=== PATIENT | female | born 1995 | race Hispanic/Latino ===

== ENCOUNTER 2023-03-03 03:40 | Emergency (ER) | payer SELFPAY ==
--- OUTSIDE RECORDS SUMMARY | 2023-03-03 03:44 | XMS REPORT | Continuity of Care Document ---
:1995 Author Organization [facility] t Address [address] [facility] [address] [place] [address] Care Team Providers Name Role Phone CINDY SCHULZ Primary Care Physician Unavailable Cindy Schulz Attending Clinician Unavailable ANTONY DOWD Attending Clinician Unavailable Antony Jimenez Attending Clinician MAYRA MAGANA Attending Clinician Unavailable Mayra Magana MD Attending Clinician Diallo Worthington MD Attending Clinician DIALLO WORTHINGTON Attending Clinician Unavailable Payton Ravi Attending Clinician David Rendon Attending Clinician DAVID TAVERA Attending Clinician Unavailable Doctor Unassigned, [place] Attending Clinician Unavailable Jessica Palomino Attending Clinician [facility] Attending Clinician Unavailable Kiesha Sims Attending Clinician ANTONY DOWD Admitting Clinician Unavailable MAYRA MAGANA Admitting Clinician Unavailable Payers Payer Name Policy Type Policy Number Effective Date Expiration Date S bell Blue Cross 6 [id number] 2019 Common Spiri t Blue Shield of 00:00:00 - [facility] [id number] 2017 - OUT OF STATE 00:00:00 Problems Condition Condition Condition Status Onset Resolution Last Treating Co mments Source Name Details Category Date Date Treatment Clinician Date No known No known Disease Unive rs active active ity of problems problems [facility] [id number] PEPITO Problem Active Common (generaliz Spirit ed anxiety - [facility]I disorder) [facility] [id number] Mixed Problem Active Common hyperlipid Spirit emia - [facility] [id number] Current Problem Active Common moderate Spirit episode of - [facility] major [facility] Center prior episode Allergies, Adverse Reactions, Alerts Allergy Allergy Status Severity Reaction(s) Onset Inactive Treating Comm ents Source Name Type Date Date Clinician No Known DA Active U 2019-0 [facility] 00 [facility] No Known DA Active U 2019-0 [facility] Allergie 4-23 [facility] 00 [facility] NO KNOWN Drug Active Univers ALLERGIE Class ity of S [facility] Social History Social Habit Start Date Stop Date Quantity Comments Source History of Common Spirit - Tobacco Use [facility] Sex Assigned At Common Sp charan - [facility] Exposure to 2022-02-23 2022-03-05 Yes University SARS-CoV-2 00:00:00 15:58:00 [facility] (event) [place] Tobacco use and 2020-01-24 2020-01-24 Smokeless tobacco Un iversity of exposure 00:00:00 00:00:00 non-user [facility] Smoking Status Start Date Stop Date Source Never Smoker Common [facility] - [facility] Medications Ordered Filled Start Stop Current Ordering Indication Dosage Frequency Signature Comments Components Source Medication Medication Date Date Medication? Clinician (SIG) Name Name iopamidol No [id number] 60mL 60 mL, Univers (ISOVUE 03-05 Intravenou ity o f 370-500 mL) 22:20: 22:30 s, ONCE, 1 [place] injection 00 :00 dose, On Medica l 60 mL 03/05/22 Branch at 1730, Routine NaCl 0.9% No 1000mL at 999 Uni vers (NS) bolus 03-05 mL/hr, ity of infusion 21:30: 22:30 1,000 mL, Arvin as 1,000 mL 00 :00 IV Medical Infusion, Branch ONCE, 1 dose, On 03/05/22 at 1630, REGINA ondansetron No 4mg 4 mg, Slow Univers (ZOFRAN 03-05 IV Push, ity of (PF)) 20:45: 20:53 ONCE, 1 [place] injection 4 00 :00 dose, On Medi kehinde mg 03/05/22 Branch at 1545, REGINA ketorolac No 30mg 30 mg, Unive rs (TORADOL) 03-05 Slow IV ity of injection 20:45: 20:53 Push, [place] 30 mg 00 :00 ONCE, 1 Medical dose, On Branch 03/05/22 at 1545, REGINA ondansetron Yes [id number] 4mg Take 1 Univers 4 mg 03-05 tablet by ity of disintegrat 00:00: mouth [place] ing tablet 00 every 8 Medica l (eight) Branch hours as needed for Nausea and Vomiting (N/V). iopamidol 2021- No [id number] 100mL 100 mL, Univers (ISOVUE 10-21- Intravenou ity o f 370-500 mL) 18:45: 19:00 s, ONCE, 1 [place] injection 00 :00 dose, On Medica l 100 mL Ifeoma Branch 10/21/21 at 1400, Routine metoclopram No 10mg 10 mg, Uni vers angela HCl 10-21-24 Slow IV ity of (REGLAN) 18:00: 17:45 Push, [place] injection 00 :00 ONCE, 1 Medical 10 mg dose, On Branch Ifeoma 10/21/21 at 1300, REGINA FENTanyl PF 2021-2021- No 75ug 75 mcg, Un halina (SUBLIMAZE 3-21 10-24 Slow IV ity o f (PF)) 18:00: 17:46 Push, [place] injection 00 :00 ONCE, 1 Medical 75 mcg dose, On Branch Ifeoma 10/21/21 at 1300, STAT ondansetron 2021-0 Yes [id number] 4mg Take 1 Univers 4 mg 3-24 tablet by ity of disintegrat 00:00: mouth [place] ing tablet 00 every 4 Medica l (four) Branch hours as needed for Nausea and Vomiting (N/V). docusate 2021-0 Yes [id number] 250mg Take 1 Un halina sodium 250 3-24 capsule by ity of mg capsule 00:00: mouth once [place] 00 daily as Medical needed for Branch Constipati on. ondansetron 2021-0 Yes [id number] 4mg Take 1 Univers 4 mg 3-24 tablet by ity of disintegrat 00:00: mouth [place] ing tablet 00 every 4 Medica l (four) Branch hours as needed for Nausea and Vomiting (N/V). dicyclomine 2021-0 Yes [id number] 20mg Take 1 Univers 20 mg 3-24 tablet by ity of tablet 00:00: mouth 4 [place] 00 (four) Medical times Branch daily. ondansetron 2021-0 Yes [id number] 4mg Take 1 Univers 4 mg 3-24 tablet by ity of disintegrat 00:00: mouth [place] ing tablet 00 every 4 Medica l (four) Branch hours as needed for Nausea and Vomiting (N/V). docusate 2021-0 Yes [id number] 250mg Take 1 Un halina sodium 250 3-24 capsule by ity of mg capsule 00:00: mouth once [place] 00 daily as Medical needed for Branch Constipati on. ondansetron 2-0 Yes [id number] 4mg Take 1 Univers 4 mg 3-24 tablet by ity of disintegrat 00:00: mouth [place] ing tablet 00 every 4 Medica l (four) Branch hours as needed for Nausea and Vomiting (N/V). dicyclomine 2022-0 Yes [id number] 20mg Take 1 Univers 20 mg 3-24 tablet by ity of tablet 00:00: mouth 4 [place] 00 (four) Medical times Branch daily. magnesium 2021- No [id number] 300mL Take 300 Univers citrate 3-24 03-25 mL by ity of solution 00:00: 04:59 mouth [place] 00 :00 now for 1 Medical dose. Branch buPROPion 2020-07 Yes bupropion Uni vers XL 150 mg 1-07 HCl XL 150 ity of 24 hr 14:43: mg 24 hr [place] tablet 05 tablet, Medical extended Branch release TAKE 1 TABLET BY MOUTH EVERY DAY IN THE MORNING buPROPion 2020-07 Yes bupropion Uni vers XL 150 mg 1-07 HCl XL 150 ity of 24 hr 14:43: mg 24 hr [place] tablet 05 tablet, Medical extended Branch release TAKE 1 TABLET BY MOUTH EVERY DAY IN THE MORNING buPROPion 2020-07 Yes bupropion Uni vers XL 150 mg 1-07 HCl XL 150 ity of 24 hr 14:43: mg 24 hr [place] tablet 05 tablet, Medical extended Branch release TAKE 1 TABLET BY MOUTH EVERY DAY IN THE MORNING buPROPion 2020-07 Yes bupropion Uni vers XL 150 mg 1-07 HCl XL 150 ity of 24 hr 14:43: mg 24 hr [place] tablet 05 tablet, Medical extended Branch release TAKE 1 TABLET BY MOUTH EVERY DAY IN THE MORNING buPROPion buPROPion No buPROPion HCl ER (XL) HCl ER (XL) HCl ER 150 MG 150 MG (XL) 150 MG buPROPion buPROPion No buPROPion HCl ER (XL) HCl ER (XL) HCl ER 150 MG 150 MG (XL) 150 MG buPROPion buPROPion No buPROPion HCl ER (XL) HCl ER (XL) HCl ER 150 MG 150 MG (XL) 150 MG buPROPion buPROPion No buPROPion HCl ER (XL) HCl ER (XL) HCl ER 150 MG 150 MG (XL) 150 MG buPROPion buPROPion No buPROPion HCl ER (XL) HCl ER (XL) HCl ER 150 MG 150 MG (XL) 150 MG buPROPion buPROPion No buPROPion HCl ER (XL) HCl ER (XL) HCl ER 150 MG 150 MG (XL) 150 MG buPROPion buPROPion No buPROPion HCl ER (XL) HCl ER (XL) HCl ER 150 MG 150 MG (XL) 150 MG buPROPion buPROPion No buPROPion HCl ER (XL) HCl ER (XL) HCl ER 150 MG 150 MG (XL) 150 MG buPROPion buPROPion No buPROPion HCl ER (XL) HCl ER (XL) HCl ER 150 MG 150 MG (XL) 150 MG buPROPion buPROPion No buPROPion HCl ER (XL) HCl ER (XL) HCl ER 150 MG 150 MG (XL) 150 MG buPROPion buPROPion No buPROPion HCl ER (XL) HCl ER (XL) HCl ER 150 MG 150 MG (XL) 150 MG buPROPion buPROPion No buPROPion HCl ER (XL) HCl ER (XL) HCl ER 150 MG 150 MG (XL) 150 MG buPROPion buPROPion No buPROPion HCl ER (XL) HCl ER (XL) HCl ER 150 MG 150 MG (XL) 150 MG buPROPion buPROPion No buPROPion HCl ER (XL) HCl ER (XL) HCl ER 150 MG 150 MG (XL) 150 MG buPROPion buPROPion No buPROPion HCl ER (XL) HCl ER (XL) HCl ER 150 MG 150 MG (XL) 150 MG buPROPion buPROPion No buPROPion HCl ER (XL) HCl ER (XL) HCl ER 150 MG 150 MG (XL) 150 MG buPROPion buPROPion No buPROPion HCl ER (XL) HCl ER (XL) HCl ER 150 MG 150 MG (XL) 150 MG buPROPion buPROPion No buPROPion HCl ER (XL) HCl ER (XL) HCl ER 150 MG 150 MG (XL) 150 MG Immunizations Ordered Filled Immunization Date Status Comments [facility] e Immunization Name Name Adacel (Tdap) Adacel (Tdap) 2020-09-01 Completed Common S pirit - 16:18:00 [facility] Adacel (Tdap) Adacel (Tdap) 2020-09-01 Completed Common S pirit - 16:18:00 [facility] Adacel (Tdap) Adacel (Tdap) 2020-09-01 Completed Common S pirit - 16:18:00 [facility] Adacel (Tdap) Adacel (Tdap) 2020-09-01 Completed Common S pirit - 16:18:00 [facility] Adacel (Tdap) Adacel (Tdap) 2020-09-01 Completed Common S pirit - 16:18:00 [facility] Adacel (Tdap) Adacel (Tdap) 2020-09-01 Completed Common S pirit - 16:18:00 [facility] Adacel (Tdap) Adacel (Tdap) 2020-09-01 Completed Common S pirit - 16:18:00 [facility] Adacel (Tdap) Adacel (Tdap) 2020-09-01 Completed Common S pirit - 16:18:00 [facility] Adacel (Tdap) Adacel (Tdap) 2020-09-01 Completed Common S pirit - 16:18:00 [facility] Adacel (Tdap) Adacel (Tdap) 2020-09-01 Completed Common S pirit - 16:18:00 [facility] Adacel (Tdap) Adacel (Tdap) 2020-09-01 Completed Common S pirit - 16:18:00 [facility] Influenza Virus 2010-03-31 Completed Universit y of Vaccine - Whole 00:00:00 [facility] Influenza Virus 2010-03-31 Completed Universit y of Vaccine - Whole 00:00:00 [facility] Influenza Virus 2010-03-31 Completed Universit y of Vaccine - Whole 00:00:00 [facility] Influenza Virus 2010-03-31 Completed Universit y of Vaccine - Whole 00:00:00 [facility] Influenza Virus 2010-03-31 Completed Universit y of Vaccine - Whole 00:00:00 [facility] Influenza Virus 2010-03-31 Completed Universit y of Vaccine - Whole 00:00:00 [facility] Vital Signs Vital Name Observation Time Observation Value Comments Source Systolic blood 2022-03-05 23:00:00 122 mm[Hg] Univer sity of pressure [facility] Diastolic blood 2022-03-05 23:00:00 78 mm[Hg] Unive rsity of pressure [facility] Heart rate 2022-03-05 23:00:00 88 /min Universi ty of [facility] Respiratory rate 2022-03-05 23:00:00 15 /min Univ ersity of [place] [facility] Oxygen saturation in 2022-03-05 23:00:00 99 /min University of Arterial blood by [place] [employer] kehinde Pulse oximetry Branch Body temperature 2022-03-05 20:29:00 37.39 Marilee Univ [facility] [place] [facility] Body height 2022-03-05 20:29:00 154.9 cm [facility] [place] [facility] Body weight 2022-03-05 20:29:00 70.761 kg [facility] [place] [facility] BMI 2022-03-05 20:29:00 29.48 kg/m2 [facility] [place] [facility] Systolic blood 2021-10-21 20:22:00 123 mm[Hg] Univer sity of pressure [place] [facility] Diastolic blood 2021-10-21 20:22:00 90 mm[Hg] Unive rsity of pressure [place] [facility] Heart rate 2021-10-21 20:22:00 76 /min [facility] [place] [facility] Body temperature 2021-10-21 20:22:00 37.5 Marilee Univ [facility] [place] [facility] Respiratory rate 2021-10-21 20:22:00 18 /min Univ [facility] [place] [facility] Oxygen saturation in 2021-10-21 20:22:00 100 /min University of Arterial blood by [place] [employer] kehinde Pulse oximetry Branch Body height 2021-10-21 16:18:00 154.9 cm [facility] [place] [facility] Body weight 2021-10-21 16:18:00 72.576 kg [facility] [place] [facility] BMI 2021-10-21 16:18:00 30.23 kg/m2 [facility] [place] [facility] Body weight 2021-10-21 01:20:00 74.98 kg [facility] [place] [facility] BMI 2021-10-21 01:20:00 31.23 kg/m2 [facility] [place] [facility] Systolic blood 2021-10-21 01:19:00 129 mm[Hg] Univer sity of pressure [place] [facility] Diastolic blood 2021-10-21 01:19:00 87 mm[Hg] Unive rsity of pressure [place] [facility] Heart rate 2021-10-21 01:19:00 91 /min [facility] [place] [facility] Body temperature 2021-10-21 01:19:00 36.72 Marilee Univ [facility] [place] [facility] Respiratory rate 2021-10-21 01:19:00 16 /min [facility] Oxygen saturation in 2021-10-21 01:19:00 99 /min University of Arterial blood by [facility] Pulse oximetry Branch Systolic blood 2021-10-20 23:22:00 129 mm[Hg] Univer sity of pressure [facility] Diastolic blood 2021-10-20 23:22:00 85 mm[Hg] Unive rsity of pressure [facility] Body temperature 2021-10-20 23:20:00 36.72 Marilee [facility] Respiratory rate 2021-10-20 23:20:00 18 /min General acute hospital Body height 2021-10-20 23:20:00 154.9 cm [facility] Body weight 2021-10-20 23:20:00 74.934 kg [facility] BMI 2021-10-20 23:20:00 31.21 kg/m2 [facility] Oxygen saturation in 2021-10-20 23:20:00 100 /min University of Arterial blood by [facility] Pulse oximetry Branch Heart rate 2021-10-20 23:20:00 89 /min [facility] height 2021-07-07 16:30:00 61 [in_i] [facility] weight 2021-07-07 16:30:00 163 [lb_av] [facility] temperature 2021-07-07 16:30:00 98 [degF] [facility] bmi 2021-07-07 16:30:00 30.8 kg/m2 [facility] Procedures Procedure Date / Time Performing Clinician Source Performed CT ABDOMEN PELVIS W 2022-03-05 22:23:55 Antony Dowd [facility] POCT TEST 2022-03-05 20:56:00 Antony Dowd [facility] LIPASE 2022-03-05 20:46:00 Antony Dowd [facility] COMP. METABOLIC PANEL 2022-03-05 20:46:00 Antony Dowd [facility] ([id number]) Medical Branch CBC WITH DIFF 2022-03-05 20:46:00 Antony Dowd [facility] URINALYSIS 2022-03-05 20:46:00 Antony Dowd [facility] CONSENT/REFUSAL FOR 2022-03-05 20:26:39 Doctor Unassigned, No [facility] [place] [facility] Name Medical [place] CT ABDOMEN PELVIS W 2021-10-21 18:47:33 Mayra Magana [facility] CONTRAST Medical Branch LIPASE 2021-10-21 17:43:00 [place] [facility]ra [facility] COMP. METABOLIC PANEL 2021-10-21 17:43:00 Mayra Magana [facility] ([id number]) Medical [place] CBC WITH DIFF 2021-10-21 17:43:00 Chino [facility] PROTHROMBIN TIME / INR 2021-10-21 17:43:00 Mayra Magana [facility] ACTIVATED PARTIAL 2021-10-21 17:43:00 Chino [facility] THRMPLAS SG [facility] URINALYSIS 2021-10-21 17:43:00 [place] Mayra [facility] POCT TEST 2021-10-21 17:40:00 [place] Mayra [facility] CONSENT/REFUSAL FOR 2021-10-21 16:14:17 Doctor Unassigned, No [facility] [place] [facility] CONSENT/REFUSAL FOR 2021-10-21 01:18:47 Doctor Unassigned, No [facility] [place] [facility] POCT TEST 2021-10-20 23:02:00 Diallo Worthington [facility] POCT URINALYSIS 2021-10-20 23:01:00 Ander D[facility]lo [facility] Encounters Start End Encounter Admission Attending Care Care Encounter Source Date/Time Date/Time Type Type Clinicians Facility Department ID 2022-04-21 [facility] [id number] Common 10:35:01 [facility] 2022-03-10 Outpatient Schulz, STLMLC STLMLC [id number] Common 16:57:00 Cindy [address] [facility] 2021-11-05 Outpatient Schulz, STLMLC STLMLC [id number] Common 09:17:03 Cindy [facility] 2021-09-27 Outpatient Schulz, STLMLC STLMLC [id number] Common 09:06:03 Cindy [facility] 2021-08-25 Outpatient Schulz, STLMLC STLMLC [id number] Common 14:19:10 Cindy [address] [facility] 2021-08-25 Outpatient Schulz, STLMLC STLMLC [id number] Common 12:32:42 Cindy [id number] [facility] 2021-08-25 Outpatient Schulz, STLMLC STLMLC [id number] Common 12:31:11 Cindy [address] [facility] 2021-08-25 Outpatient Schulz, STLMLC STLMLC [id number] Common 12:27:59 Cindy [address] [facility] 2022-03-10 2022-03-10 (WEB) STLMLC STLMLC [id number] Co mmon 00:00:00 00:00:00 [facility] 2022-03-05 2022-03-05 Emergency X ANDRESSA ANTONY [facility] ERT [id number] Univers 15:30:00 19:25:00 ity of [facility] 2022-03-05 2022-03-05 Emergency Antony Dowd [facility] [id number] Univers 15:30:00 19:25:00 T LEANDER [id number] i brittney [facility] [id number] [facility] [id number] [place] [address] Branch 2022-03-03 2022-03-03 ([place]) Nurse STMELIZALC STLC [id number] Common 00:00:00 00:00:00 Visit [facility] 2022-03-02 2022-03-02 (TEL) STLMLC STLMLC [id number] Co mmon 00:00:00 00:00:00 Spirit - [facility] 2021-10-21 2021-10-21 Emergency X CHINO [facility] ERT [id number] Univers 11:22:00 15:30:[address] [facility] 2021-10-21 2021-10-21 [facility] [id number] Univers 11:22:00 15:30:00 [facility] [id number] i ty of [id number] [id number] [facility] 084 Branch 2021-10-20 2021-10-20 Emergency X [facility] ERT [id number] Univers 20:23:00 [facility] 2021-10-20 2021-10-20 Emergency TRAUMA [id number] Univers 20:23:00 23:06:00 BOCA RATON [id number] [id number] [id number] [facility] 014 Branch 2021-10-20 2021-10-20 [facility]gent [facility] [id number] Univers 19:00:00 19:00:00 Care [facility] [id number] it [facility] [id number] Arvin as SUZAN?BLEA [phone] [address] MEDICAL OFFICE BUILDING 2021-10-20 2021-10-20 Outpatient R ANDER [facility] [id number] Univers 19:00:00 18:20:11 [facility] 2021-09-26 2021-09-26 (WEB) STLC STLC [id number] Co mmon 00:00:00 00:00:00 [facility] 2021-08-10 2021-08-10 OFFICE STLC STLC [id number] Co mmon 00:00:00 00:00:00 VISIT Spirit ESTAB PT - CHI LEVEL 1 [facility] 2021-08-10 2021-08-10 (WEB) STLMLC STLMLC [id number] Co mmon 00:00:00 00:00:00 Spirit - [facility] 2021-07-07 2021-07-07 OFFICE STLMLC STLMLC [id number] Co mmon 00:00:00 00:00:00 VISIT EST Spir it PT LEVEL 3 - [facility] 2021-06-30 2021-06-30 (WEB) STLMLC STLMLC [id number] Co mmon 00:00:00 00:00:00 [facility] 2021-06-29 2021-06-29 (TEL) STLMLC STLMLC [id number] Co mmon 00:00:00 00:00:00 [facility] 2021-06-29 2021-06-29 (WEB) STLMLC STLMLC [id number] Co mmon 00:00:00 00:00:00 [facility] 2021-06-29 2021-06-29 OFFICE STLMLC STLMLC [id number] Co mmon 00:00:00 00:00:00 VISIT Spirit ESTAB PT - CHI LEVEL 1 [facility] 2021-06-06 2021-06-06 [facility] [id number] [facility] 14:58:12 23:59:00 Encounter [employer] [id number] ity of [place] [id number] Arvin as SUZAN?BLEA [id number] [address] [facility] 2021-06-06 2021-06-06 [facility] [id number] [facility] 14:58:11 23:59:00 Encounter [employer] [id number] ity of [place] [id number] Arvin as SUZAN?BLEA [id number] [address] [facility]ICE [facility] 2021-06-06 2021-06-06 [place] [id number] [facility] 14:37:53 15:49:33 Care David Tavera [facility] [id number] ity of [place] [id number] Arvin as SUZAN?BLEA [id number] [place] elizabeth BEGUMEY [address] [place] MEDICAL OFFICE BUILDING 2021-06-06 2021-06-06 Outpatient R YOSHI [facility] [id number] Univers 14:20:00 15:49:33 DAVID ity o f [facility] 2021-06-06 2021-06-06 Orders Doctor ANGI [id number] Univers 00:00:00 00:00:00 Only Unassigned, MIGEL [id number] [facility] [id number] Arvin as [id number] [address] 2021-02-16 2021-02-16 Outpatient STLMLC STLMLC [id number] Common 00:00:00 00:00:00 [facility] 2020-12-10 2020-12-10 Outpatient STLMLC STLMLC [id number] Common 00:00:00 00:00:00 [facility] 2020-12-03 2020-12-03 Outpatient STLMLC STLMLC [id number] Common 00:00:00 00:00:00 [facility] 2020-09-23 2020-09-23 Outpatient STLMLC STLMLC [id number] Common 00:00:00 00:00:00 [facility] 2020-09-01 2020-09-01 Outpatient STLMLC STLMLC [id number] Common 00:00:00 00:00:00 [facility] 2020-01-25 2020-01-25 [facility] [id number] Univers 00:00:00 00:00:00 [employer] [id number] it y of [place] [id number] Avrin as Professio [phone] [place] elizabeth le [address] [place] [address] 2020-01-24 2020-01-24 Urgent Pob1, Acute Care Clinic [facility] [id number]. [id number] Univers 09:38:24 09:58:24 [id number] [id number] Arvin as Ophelia [phone] [place] [address] Branch [address] [facility] 2020-01-24 2020-01-24 Outpatient R [facility] [id number] Univers 09:40:00 09:40:[address] [facility] Results Test Description Test Time Test Comments Results Result Comments Source COMP. METABOLIC PANEL (27211) 2022-03-05 21:09:07 Test Item Value Reference Range Interpretation Comme nts NA (test code = 9824456476) 137 mmol/L 135-145 K (test code = 9050295079) 3.9 mmol/L 3.5-5 CL (test code = 0578431089) 101 mmol/L 98-108 CO2 TOTAL (test code = 8899996007) 24 mmol/L 23-31 AGAP (test code = 0246048419) 2-16 BUN (test code = 6749979223) 8 mg/dL 7-23 GLUCOSE (test code = 1611355706) 130 mg/dL 70-110 H CREATININE (test code = 0.46 mg/dL 0.5-1.04 L 2011281592) TOTAL BILI (test code = 0.4 mg/dL 0.1-1.7 9641164897) CALCIUM (test code = 1908806956) 9.5 mg/dL 8.6-10.6 T PROTEIN (test code = 0386479212) 7.9 g/dL 6.3-8.2 ALBUMIN (test code = 6859997415) 5.1 g/dL 3.5-5 H ALK PHOS (test code = 5544176594) 89 U/L 34-122 ALTv (test code = 1742-6) 20 U/L 5-35 AST(SGOT) (test code = 3524699133) 23 U/L 13-40 eGFR (test code = 4503621436) mL/min/1.73m2 DIETER (test code = DIETER) Association of Glomerular Filtration Rate (GFR) and Staging of Kidney Disease* + +-------- + ------+| GFR (mL/min/1.73 m2) ?| With Kidney Damage ?| ?Without Kidney Damage+ +-- + +| ?>90 ?| ?Stage one ?| ? Normal ?+ +------- + -------+| ?60-89 ?| ?Stage two ?| ? Decreased GFR ? + +-------- + ------+| ?30-59 ?| ?Stage three ?| ? Stage three ? + +-------- + ------+| ?15-29 ?| ?Stage four ? | ? Stage four ?+ +------- + -------+| ?<15 (or dialysis) ? ?| ?Stage five ? | ? Stage five ?+ +------- + -------+ *Each stage assumes the associated GFR level has been in effect for at least three months. ?Stages 1 to 5, with or without kidney disease, indicate chronic kidney disease. Notes: Determination of stages one and two (with eGFR >59mL/min/1.73 m2) requires estimation of kidney damage for at least three months as defined by structural or functional abnormalities of the kidney, manifested by either:Pathological abnormalities or Markers of kidney damage (including abnormalities in the composition of the blood or urine or abnormalities in imaging tests). Lab Interpretation (test code = Abnormal 97623-1) [facility] Test Item Value Reference Range Interpretation Comments LIPASE (test code = 0499090241) 70 U/L 0-220 Lab Interpretation (test code = Normal 89592-3) [facility] WITH [id number] 20:58:27 Test Item Value Reference Range Interpretation Comments WBC (test code = See_Comment H [Automated 0815-2) message] The system which generated this result transmit ritika reference range : 4.30 - 11.10 10*3/?L. The reference range was not used to interpret this result as normal/abnormal . RBC (test code = See_Comment [Automated 712-9) message] The system which generated this result transmit ritika reference range : 3.93 - 5.25 10*6/?L. The reference range was not used to interpret this result as normal/abnormal . HGB (test code = 12.4 g/dL 11.6-15 718-7) HCT (test code = 37.9 % 35.7-45.2 4544-3) MCV (test code = 81.5 fL 80.6-95.5 787-2) MCH (test code = 26.7 pg 25.9-32.8 785-6) MCHC (test code = 32.7 g/dL 31.6-35.1 786-4) RDW-SD (test code = 38.4 fL 39-49.9 L 19375-3) RDW-CV (test code = 13.1 % 12-15.5 788-0) PLT (test code = See_Comment [Automated 777-3) message] The system which generated this result transmit ritika reference range : 166 - 358 10*3/ ?L. The reference range was not u sed to interpret th is result as normal/abnormal . MPV (test code = 10.3 fL 9.5-12.9 53753-1) NRBC/100 WBC (test See_Comment [Automat ed code = 6856757762) message] The system which generated this result transmit ritika reference range : 0.0 - 10.0 /100 WBCs. The reference range was not used to interpret this result as normal/abnormal . NRBC x10^3 (test code See_Comment [Auto mated = 1347829026) message] The system which generated this result transmit ritika reference range : 10*3/?L. The reference range was not used to interpret this result as normal/abnormal . GRAN MAT (NEUT) % 90.2 % (test code = 770-8) IMM GRAN % (test code 0.30 % = 5473891193) LYMPH % (test code = 6.9 % 736-9) MONO % (test code = 2.3 % 5905-5) EOS % (test code = 0.0 % 713-8) BASO % (test code = 0.3 % 706-2) GRAN MAT x10^3(ANC) 11.66 10*3/uL 1.88-7.09 H (test code = 0431910889) IMM GRAN x10^3 (test 0.04 10*3/uL 0-0.06 code = 3774956300) LYMPH x10^3 (test code 0.89 10*3/uL 1.32-3.29 L = 731-0) MONO x10^3 (test code 0.30 10*3/uL 0.33-0.92 L = 742-7) EOS x10^3 (test code = 0.03-0.39 L 711-2) BASO x10^3 (test code 0.04 10*3/uL 0.01-0.07 = 704-7) Lab Interpretation Abnormal (test code = 38795-8) [facility] [id number] 20:56:00 Test Item Value Reference Range Interpretation Comments POCT PREG (test code = 1605) Negative On board controls acceptable with Present C Line (test code = 3574) POCT PREG TEST DATE (test 05-30-2023 code = 3576) POCT PREG LOT # (test code = 3575) [id number] Lab Interpretation (test code = Normal 75085-0) [facility]),[id number] 00:00:00 Test Item Value Reference Range Interpretation Comments SARS-CoV-2 INTERPRETATION (test NEGATIVE SEE NOTE code = 99372-3) SOURCE (test code = 94339-9) NOT SPECIFIED COMP. METABOLIC PANEL (51944)2021-10-21 19:01:40 Test Item Value Reference Range Interpretation Comments NA (test code = 139 mmol/L 135-145 0169917126) K (test code = 4.0 mmol/L 3.5-5.0 3848785606) CL (test code = 103 mmol/L 98-108 7585893990) CO2 TOTAL (test code = 26 mmol/L 23-31 5594283826) AGAP (test code = 2-16 8539645561) BUN (test code = 13 mg/dL 7-23 2010811821) GLUCOSE (test code = 83 mg/dL 70-110 0427452484) CREATININE (test code = 0.49 mg/dL 0.50-1.04 L 1652889176) TOTAL BILI (test code = 0.5 mg/dL 0.1-1.5 0474018435) CALCIUM (test code = 9.0 mg/dL 8.6-10.6 3925464562) T PROTEIN (test code = 7.8 g/dL 6.3-8.2 2279598293) ALBUMIN (test code = 5.1 g/dL 3.5-5.0 H 3087028976) ALK PHOS (test code = 63 U/L 34-122 5643707069) ALTv (test code = 14 U/L 5-35 2-6) AST(SGOT) (test code = 26 U/L 13-40 0737421553) eGFR (test code = mL/min/1.73m2 2957684684) DIETER (test code = DIETER) Association of Glomerular Filtration Rate (GFR) and Staging of Kidney Disease* + --+ --+ ------+| GFR (mL/min/1.73 m2) ?| With Kidney Damage ?| ?Without Kidney Damage+ --------+ --------+ +| ?>90 ?| ?Stage one ?| ? Normal ?+ ---+ ---+ -------+| ?60-89 ?| ?Stage two ?| ? Decreased GFR ? + --+ --+ ------+| ?30-59 ?| ?Stage three ?| ? Stage three ? + --+ --+ ------+| ?15-29 ?| ?Stage four ? | ? Stage four ?+ ---+ ---+ -------+| ?<15 (or dialysis) ? ?| ?Stage five ? | ? Stage five ?+ ---+ ---+ -------+ *Each stage assumes the associated GFR level has been in effect for at least three months. ?Stages 1 to 5, with or without kidney disease, indicate chronic kidney disease. Notes: Determination of stages one and two (with eGFR >59mL/min/1.73 m2) requires estimation of kidney damage for at least three months as defined by structural or functional abnormalities of the kidney, manifested by either:Pathological abnormalities or Markers of kidney damage (including abnormalities in the composition of the blood or urine or abnormalities in imaging tests). Lab Interpretation Abnormal (test code = 09060-5) [facility] [id number] 18:39:58 Test Item Value Reference Range Interpretation Comments APTT Patient (test See_Comment [Automat ed code = 3173-2) message] The system which generated this result transmitted reference range : 23 - 38 Seconds . The reference range was not used to interpr et this result as normal/abnormal . DIETER (test code = DIETER) The [facility] patient population mean normal value for aPTT is 30 seconds. Lab Interpretation Normal (test code = 97480-5) [facility] HospitalPROT[facility] / [id number] 18:37:41 Test Item Value Reference Range Interpretation Comments PROTIME PATIENT (test See_Comment [Auto mated message] code = 5964-2) The system wh ich generated this result transmitted ref erence range: 12.0 - 1 4.7 Seconds. The re ference range was not u sed to interpret this result as normal/abnor mal. INR (test code = 6301-6) Nor mal INR <1.1; Warfarin Therap eutic range 2.0 to 3. 0 or 2.5 to 3.5, dep ending upon the indica tions. Lab Interpretation (test Normal code = 44895-2) [facility] WITH [id number] 18:34:17 Test Item Value Reference Range Interpretation Comments WBC (test code = See_Comment [Automated 4190-2) message] The sy stem which generated this result transmitted reference range : 4.30 - 11.10 10*3/?L. The reference range was not used to interpret this result as normal/abnormal . RBC (test code = See_Comment [Automated 009-8) message] The sy stem which generated this result transmitted reference range : 3.93 - 5.25 10*6/?L. The reference range was not used to interpret this result as normal/abnormal . HGB (test code = 12.5 g/dL 11.6-15.0 718-7) HCT (test code = 39.1 % 35.7-45.2 4544-3) MCV (test code = 82.1 fL 80.6-95.5 787-2) MCH (test code = 26.3 pg 25.9-32.8 785-6) MCHC (test code = 32.0 g/dL 31.6-35.1 786-4) RDW-SD (test code = 37.0 fL 39.0-49.9 L 54010-7) RDW-CV (test code = 12.3 % 12.0-15.5 788-0) PLT (test code = See_Comment [Automated 237-3) message] The sy stem which generated this result transmitted reference range : 166 - 358 10*3/ ?L. The reference r sherie was not used to interpret this result as normal/abnormal . MPV (test code = 10.6 fL 9.5-12.9 82939-5) NRBC/100 WBC (test See_Comment [Automat ed code = 6200788950) message] The system which generated this result transmitted reference range : 0.0 - 10.0 /100 WBCs. The refer ence range was not u sed to interpret th is result as normal/abnormal . NRBC x10^3 (test code <0.01 See_Comment [Auto mated = 9036051016) message] The s ystem which generated this result transmitted reference range : 10*3/?L. The reference range was not used to interpret this result as normal/abnormal . GRAN MAT (NEUT) % 59.2 % (test code = 770-8) IMM GRAN % (test code 0.30 % = 2390914192) LYMPH % (test code = 33.6 % 736-9) MONO % (test code = 5.0 % 5905-5) EOS % (test code = 1.4 % 713-8) BASO % (test code = 0.5 % 706-2) GRAN MAT x10^3(ANC) 3.91 10*3/uL 1.88-7.09 (test code = 1502322962) IMM GRAN x10^3 (test <0.03 0.00-0.06 code = 3773033337) LYMPH x10^3 (test code 2.22 10*3/uL 1.32-3.29 = 731-0) MONO x10^3 (test code 0.33 10*3/uL 0.33-0.92 = 742-7) EOS x10^3 (test code = 0.09 10*3/uL 0.03-0.39 711-2) BASO x10^3 (test code 0.03 10*3/uL 0.01-0.07 = 704-7) Lab Interpretation Abnormal (test code = 37938-1) [facility] 18[facility]25:18 Test Item Value Reference Range Interpretation Comments LIPASE (test code = 5987785349) 110 U/L 0-220 Lab Interpretation (test code = Normal 63353-9) [facility] [id number] 17:40:00 Test Item Value Reference Range Interpretation Comments POCT PREG (test code = 1605) NEGATIVE On board controls acceptable with PRESENT C Line (test code = 3574) POCT PREG LOT # (test code = 3575) [id number] POCT PREG TEST DATE (test 2022-09-27 code = 3576) Lab Interpretation (test code = Normal 59537-3) [facility] URINALYSIS W SPECIFIC [id number] 23:02:00 Test Item Value Reference Range Interpretation Comments POCT U SP GRAV (test 1.010 mg/dl 1.005-1.025 code = 3255) POCT PH U (test code = 7 mg/dl 5-8 3254) POCT U LEUK EST (test trace Negative - code = 3263) Negative POCT U NIT (test code negative Negative - = 3262) Negative POCT U PROT (test code trace Negative - = 3259) Negative POCT U GLU (test code negative Negative - = 3256) Negative POCT U KETONE (test small + Negative - code = 3258) Negative POCT U UROBILI (test normal 0.2-1 code = 3260) POCT U BILI (test code negative Negative - = 3261) Negative POCT U BLD (test code trace Negative - = 3257) Negative POCT U COLOR (test yellow code = 3266) POCT U APPEAR (test cloudy code = 3267) DIETER (test code = DIETER) accurate development and interpretation of all internal controls Lab Interpretation Abnormal (test code = 85242-9) [facility] [id number] 23:02:00 Test Item Value Reference Range Interpretation Comments POCT PREG (test code = Negative 1605) On board controls Yes acceptable with C Line (test code = 3574) POCT PREG LOT # (test code = 3575) POCT PREG TEST DATE (test code = 3576) DIETER (test code = DIETER) accurate development and interpretation of all internal controls Lab Interpretation Normal (test code = 81015-0) [facility]),[id number] 00:00:00 Test Item Value Reference Range Interpretation Comments SARS-CoV-2 INTERPRETATION (test NEGATIVE SEE NOTE code = 79275-2) SOURCE (test code = 80391-0) NOT SPECIFIED HGB [id number] 05:19:00 Test Item Value Reference Range Interpretation Comments HEMOGLOBIN (test code = HGB) 9.8 g/dL 10.7-13.9 L HEMATOCRIT (test code = HCT) 30.5 % 32.1-42.1 L CBC W/AUTO [id number] 15:36:00 Test Item Value Reference Range Interpretation Comments WHITE BLOOD CELL (test code = WBC) 15.3 K/mm3 6.6-12.1 H RED BLOOD CELL (test code = RBC) 4.26 M/mm3 3.45-5.01 N HEMOGLOBIN (test code = HGB) 12.1 g/dL 10.7-13.9 N HEMATOCRIT (test code = HCT) 37.3 % 32.1-42.1 N MEAN CELL VOLUME (test code = MCV) 88 fL 84.1-94.8 N MEAN CELL HGB (test code = MCH) 28.4 pg 27-35 N MEAN CELL HGB CONCETRATION (test 32.4 gm/dL 32.2-34.1 N code = MCHC) RED CELL DISTRIBUTION WIDTH (test 15.2 % 12.4-16.5 N code = RDW) PLATELET COUNT (test code = PLT) 164 K/mm3 133-385 N IMMATURE PLATELET FRACTION (test 0.0 % 0.0-10.8 N code = IPF) MEAN PLATELET VOLUME (test code = 12.3 fl 9.1-12.7 N MPV) NEUTROPHIL % (test code = NT%) 87.2 % 56.5-79.4 H LYMPHOCYTE % (test code = LY%) 7.7 % 14.3-34.3 L MONOCYTE % (test code = MO%) 4.5 % 5.1-10.4 L EOSINOPHIL % (test code = EO%) 0.1 % 0.1-3.0 N BASOPHIL % (test code = BA%) 0.2 % 0.1-1.0 N NEUTROPHIL # (test code = NT#) 13.3 K/mm3 LYMPHOCYTE # (test code = LY#) 1.2 K/mm3 MONOCYTE # (test code = MO#) 0.7 K/mm3 EOSINOPHIL # (test code = EO#) 0.01 K/mm3 BASOPHIL # (test code = BA#) 0.0 K/mm3 RBC MORPHOLOGY REQUIRED (test code NORMAL NORMAL = RBCM) PLATELET MORPHOLOGY REQUIRED (test NORMAL NORMAL code = PLTMR) AG HEPATITIS B [id number] 08:28:00 Test Item Value Reference Range Interpretation Comments AG HEPATITIS B SURFACE (test code NONREACTIVE NONREACTIVE = HBSAG) IS CONSENT FORM SIGNED FOR HIV TESTING? [facility] HEPATITIS C [id number] 08:28:00 Test Item Value Reference Range Interpretation Comments AB HEPATITIS C (test code = NONREACTIVE NONREACTIVE HCVAB) SIGNAL TO CUTOFF (test code = 0.02 <0.80 N CUTOFF) IS CONSENT FORM SIGNED FOR HIV TESTING? YAB [id number] 08:28:00 Test Item Value Reference Range Interpretation Comments AB TREPONEMA (test code = TREPAB) NONREACTIVE NONREACTIVE IS CONSENT FORM SIGNED FOR HIV TESTING? YA HIV 1 08:28:00 Test Item Value Reference Range Interpretation Comments AB HIV 1 2 (test NONREACTIVE NONREACTIVE Done by [facility] code = [id number]) 4th Gen HIV Ag/Ab Combo Screen IS CONSENT FORM SIGNED FOR HIV TESTING? YAG HEPATITIS B [id number] 07:44:00 Test Item Value Reference Range Interpretation Comments AG HEPATITIS B SURFACE (test code NONREACTIVE NONREACTIVE = HBSAG) IS CONSENT FORM SIGNED FOR HIV TESTING? B HEPATITIS C [id number] 07:44:00 Test Item Value Reference Range Interpretation Comments AB HEPATITIS C (test code = HCVAB) NONREACTIVE SIGNAL TO CUTOFF (test code = CUTOFF) <0.80 IS CONSENT FORM SIGNED FOR HIV TESTING? YAB [id number] 07:44:00 Test Item Value Reference Range Interpretation Comments AB TREPONEMA (test code = TREPAB) NONREACTIVE NONREACTIVE IS CONSENT FORM SIGNED FOR HIV TESTING? YAB HIV 1 07:44:00 Test Item Value Reference Range Interpretation Comments AB HIV 1 2 (test code = OMV38OA) NONREACTIVE IS CONSENT FORM SIGNED FOR HIV TESTING? YUR PROTEIN/CREATININE [id number] 06:44:00 Test Item Value Reference Range Interpretation Comments UR PROTEIN RANDOM (test code = 36.0 mg/dL PROTU) UR CREATININE RANDOM (test 75.2 mg/dL code = CREATU) PROTEIN/CREATININE RATIO (test 470.0 mg/gcrea <200 H code = P/CRATIO) COMPREHENSIVE METABOLIC [id number] 06:15:00 Test Item Value Reference Range Interpretation Comments SODIUM (test code = NA) 137 mEq/L 135-145 N POTASSIUM (test code = K) 4.9 mEq/L 3.5-5.0 N CHLORIDE (test code = CL) 104 mEq/L 100-115 N CARBON DIOXIDE (test code = CO2) 22 mEq/L 22-31 N ANION GAP (test code = GAP) 16.20 10-20 N GLUCOSE (test code = GLU) 79 mg/dL 65-110 N BLOOD UREA NITROGEN (test code = 6 mg/dL 7-18 L BUN) GLOMERULAR FILTRATION RATE (test 198 ml/min >60 N code = GFR) CREATININE (test code = CREAT) 0.4 mg/dL 0.5-1.0 L TOTAL PROTEIN (test code = PROT) 6.3 gm/dL 6.3-8.2 N ALBUMIN (test code = ALB) 2.9 gm/dL 3.4-4.8 L CALCIUM (test code = CA) 8.8 mg/dL 8.4-10.2 N BILIRUBIN TOTAL (test code = 0.2 mg/dL 0.2-1.0 N BILT) SGOT/AST (test code = AST) 39 units/L 15-37 H SGPT/ALT (test code = ALT) 13 units/L 12-78 N ALKALINE PHOSPHATASE TOTAL (test 196 units/L 46-116 H code = ALKP) URIC [id number] 06:15:00 Test Item Value Reference Range Interpretation Comments URIC ACID (test code = URIC) 5.1 mg/dL 2.6-6.0 N CBC W/AUTO [id number] 05:55:00 Test Item Value Reference Range Interpretation Comments WHITE BLOOD CELL (test code = WBC) 9.0 K/mm3 6.6-12.1 N RED BLOOD CELL (test code = RBC) 4.19 M/mm3 3.45-5.01 N HEMOGLOBIN (test code = HGB) 11.9 g/dL 10.7-13.9 N HEMATOCRIT (test code = HCT) 36.9 % 32.1-42.1 N MEAN CELL VOLUME (test code = MCV) 88 fL 84.1-94.8 N MEAN CELL HGB (test code = MCH) 28.4 pg 27-35 N MEAN CELL HGB CONCETRATION (test 32.2 gm/dL 32.2-34.1 N code = MCHC) RED CELL DISTRIBUTION WIDTH (test 14.9 % 12.4-16.5 N code = RDW) PLATELET COUNT (test code = PLT) 184 K/mm3 133-385 N IMMATURE PLATELET FRACTION (test 0.0 % 0.0-10.8 N code = IPF) MEAN PLATELET VOLUME (test code = 12.9 fl 9.1-12.7 H MPV) NEUTROPHIL % (test code = NT%) 69.0 % 56.5-79.4 N LYMPHOCYTE % (test code = LY%) 23.4 % 14.3-34.3 N MONOCYTE % (test code = MO%) 5.5 % 5.1-10.4 N EOSINOPHIL % (test code = EO%) 1.0 % 0.1-3.0 N BASOPHIL % (test code = BA%) 0.3 % 0.1-1.0 N NEUTROPHIL # (test code = NT#) 6.2 K/mm3 LYMPHOCYTE # (test code = LY#) 2.1 K/mm3 MONOCYTE # (test code = MO#) 0.5 K/mm3 EOSINOPHIL # (test code = EO#) 0.09 K/mm3 BASOPHIL # (test code = BA#) 0.0 K/mm3 RBC MORPHOLOGY REQUIRED (test code NORMAL NORMAL = RBCM) PLATELET MORPHOLOGY REQUIRED (test NORMAL NORMAL code = PLTMR) CLOTTED;NOTIFIED DANNY FOR [id number] 16:16:00 Test Item Value Reference Range Interpretation Comments CREATININE (test code = CREAT) 0.5 mg/dL 0.5-1.0 N [id number] 16:16:00 Test Item Value Reference Range Interpretation Comments SGOT/AST (test code = AST) 21 units/L 15-37 N [id number] 16:16:00 Test Item Value Reference Range Interpretation Comments SGPT/ALT (test code = ALT) 14 units/L 12-78 N CBC W/AUTO [id number] 16:09:00 Test Item Value Reference Range Interpretation Comments WHITE BLOOD CELL (test code = WBC) 8.6 K/mm3 6.6-12.1 N RED BLOOD CELL (test code = RBC) 4.24 M/mm3 3.45-5.01 N HEMOGLOBIN (test code = HGB) 12.0 g/dL 10.7-13.9 N HEMATOCRIT (test code = HCT) 37.6 % 32.1-42.1 N MEAN CELL VOLUME (test code = MCV) 89 fL 84.1-94.8 N MEAN CELL HGB (test code = MCH) 28.3 pg 27-35 N MEAN CELL HGB CONCETRATION (test 31.9 gm/dL 32.2-34.1 L code = MCHC) RED CELL DISTRIBUTION WIDTH (test 15.2 % 12.4-16.5 N code = RDW) PLATELET COUNT (test code = PLT) 181 K/mm3 133-385 N IMMATURE PLATELET FRACTION (test 0.0 % 0.0-10.8 N code = IPF) MEAN PLATELET VOLUME (test code = 12.6 fl 9.1-12.7 N MPV) NEUTROPHIL % (test code = NT%) 69.3 % 56.5-79.4 N LYMPHOCYTE % (test code = LY%) 23.1 % 14.3-34.3 N MONOCYTE % (test code = MO%) 6.1 % 5.1-10.4 N EOSINOPHIL % (test code = EO%) 0.6 % 0.1-3.0 N BASOPHIL % (test code = BA%) 0.3 % 0.1-1.0 N NEUTROPHIL # (test code = NT#) 6.0 K/mm3 LYMPHOCYTE # (test code = LY#) 2.0 K/mm3 MONOCYTE # (test code = MO#) 0.5 K/mm3 EOSINOPHIL # (test code = EO#) 0.05 K/mm3 BASOPHIL # (test code = BA#) 0.0 K/mm3 RBC MORPHOLOGY REQUIRED (test code NORMAL NORMAL = RBCM) PLATELET MORPHOLOGY REQUIRED (test NORMAL NORMAL code = PLTMR) SARS-COV 2 AntigenSARS-COV 2 Antigen Notes Date/Time Note Provider Source 2018-11-25 08:18:00-00:00 [facility] ([facility]) OB Postpart Progr Note REPORT#:[id number] REPORT STATUS: Signed DATE:11/25/18 TIME: 08 PATIENT: ANDREA GONZALEZ UNIT #: [id number] ROOM/BED: : 95 AGE: 23 SEX: F ATTEND: Akash Salgado MD ADM AUTHOR: Lalo Salgado MD * ALL edits or amendments must be made on the [employer]/computer document * Subjective Subjective Status/Day: post (d3) Patient reports: Patient reports: Yes no complaints, Yes pain management effectiv e, Yes tolerating po well Objective Nursing Documentation Review Nursing Data: The data set between the solid lines has been im ported from nursing documentation. Any exceptions have been noted be low under Provider comments. Feeding preference: Provider comments on imported nursing data: [] General VS: Vital Signs: Date Time Temp Pulse Resp B/P B/P Pulse O2 O2 F low FiO2 Mean Ox Delivery Rate 11/24 2335 98.6 112 20 128/77 94.3 11/24 1710 99.2 114 20 128/89 11/24 0825 98.5 106 20 119/79 Physical Exam Neuro: Exam: alert, oriented x3 Abdomen: soft, no abnormal tenderness Uterus: firm, non-tender Fundus: firm, below the umbilicus Diagnosis, Assessment Plan Diagnosis, Assessment Plan Assessment: nml progress Plan: routine care, discharge today at 0818 RPT #:[id number] END OF REPORT 2018-11-24 10:52:00-00:00 [facility] OB Postpart Progr Note REPORT#:[id number] REPORT STATUS: Signed DATE:11/24/18 TIME: 1052 PATIENT: ANDREA GONZALEZ UNIT #: [id number] ROOM/BED: : 95 AGE: 23 SEX: F ATTEND: Akash Salgado MD ADM AUTHOR: Lalo Salgado MD * ALL edits or amendments must be made on the el [employer]/computer document * Subjective Subjective Status/Day: post (d2) Patient reports: Patient reports: Yes no complaints, Yes pain management effectiv e, Yes tolerating po well Objective Nursing Documentation Review Nursing Data: The data set between the solid lines has been im ported from nursing documentation. Any exceptions have been noted be low under Provider comments. Feeding preference: Provider comments on imported nursing data: Physical Exam Neuro: Exam: alert, oriented x3 Abdomen: soft, no abnormal tenderness Uterus: firm, non-tender Fundus: firm, below the umbilicus Diagnosis, Assessment Plan Diagnosis, Assessment Plan Assessment: nml progress Plan: routine care, discharge today at 1053 RPT #:[id number] END OF REPORT 2018-11-23 08:40:00-00:00 [facility] OB Postpart Progr Note REPORT#:[id number] REPORT STATUS: Signed DATE:11/23/18 TIME: 0840 PATIENT: ANDREA GONZALEZ UNIT #: [id number] ROOM/BED: : 95 AGE: 23 SEX: F ATTEND: Akash Salgado MD ADM AUTHOR: Lalo Salgado MD * ALL edits or amendments must be made on the el [employer]/computer document * Subjective Subjective Status/Day: post (d1) Patient reports: Patient reports: Yes no complaints, Yes pain management effectiv e, Yes tolerating po well Objective Nursing Documentation Review Nursing Data: The data set between the solid lines has been im ported from nursing documentation. Any exceptions have been noted be low under Provider comments. Feeding preference: Provider comments on imported nursing data: [] General VS: Vital Signs: Date Time Temp Pulse Resp B/P B/P Pulse O2 O2 F low FiO2 Mean Ox Delivery Rate 11/23 0020 99.8 114 18 134/95 11/23 2023 98.5 110 125/79 11/22 194 110.0 11/22 194 122 138/91 11/22 193 103.0 11/22 193 118 137/85 11/22 191 100.0 11/22 191 122 126/84 11/22 190 96.0 11/22 190 116 127/76 11/22 184 105.0 11/22 184 126 138/83 11/22 1832 101.0 11/22 183 122 135/76 11/22 1817 99.0 11/22 181 99.3 118 134/79 11/22 1802 100.0 11/22 180 130 143/82 11/22 1748 83.0 11/22 1748 122 123/59 11/22 1732 113.0 11/22 173 121 143/95 11/22 1647 113.0 11/22 1647 125 148/89 11/22 1632 97.0 11/22 1632 100.0 123 17 145/67 11/22 1617 112.0 11/22 1617 133 171/78 11/22 1602 97.0 11/22 1602 127 134/69 11/22 1547 110.0 11/22 1547 125 152/82 11/22 1533 123.0 11/22 1533 130 173/95 11/22 1502 102.0 11/22 1502 99.5 123 17 137/78 11/22 1448 103.0 11/22 1448 116 137/79 11/22 1432 110.0 11/22 1432 141 140/89 11/22 1418 102.0 11/22 1418 114 131/82 11/22 1402 97.0 11/22 1402 112 127/78 11/22 1347 90.0 11/22 1347 121 120/72 11/22 1332 97.0 11/22 1332 114 130/81 11/22 1331 98.6 98 17 11/22 1317 89.0 11/22 1317 107 118/72 11/22 1303 89.0 11/22 1303 106 120/71 11/22 1248 98.0 11/22 1248 92 129/75 11/22 1232 134.0 11/22 1232 98 153/126 11/22 1202 114.0 11/22 1202 85 141/97 11/22 1148 115.0 11/22 1148 85 146/95 11/22 1133 105.0 11/22 1133 105 128/88 11/22 1118 102.0 11/22 1118 93 126/86 11/22 1102 97.0 11/22 1102 88 125/79 11/22 1056 98.0 11/22 1056 96 126/82 11/22 1051 94.0 11/22 1051 88 127/72 Physical Exam Neuro: Exam: alert, oriented x3 Abdomen: soft, no abnormal tenderness Uterus: firm, non-tender Fundus: firm, below the umbilicus Result Findings/Data: Laboratory Tests: 11/23 11/22 0411 1516 Hematology WBC (6.6 - 12.1 K/mm3) 15.3 H RBC (3.45 - 5.01 M/mm3) 4.26 Hgb (10.7 - 13.9 g/dL) 9.8 L 12.1 Hct (32.1 - 42.1 %) 30.5 L 37.3 MCV (84.1 - 94.8 fL) 88 MCH (27 - 35 pg) 28.4 MCHC (32.2 - 34.1 gm/dL) 32.4 RDW (12.4 - 16.5 %) 15.2 Plt Count (133 - 385 K/mm3) 164 MPV (9.1 - 12.7 fl) 12.3 Neut % (Auto) (56.5 - 79.4 %) 87.2 H Lymph % (Auto) (14.3 - 34.3 %) 7.7 L Divide % (Auto) (5.1 - 10.4 %) 4.5 L Eos % (Auto) (0.1 - 3.0 %) 0.1 Baso % (Auto) (0.1 - 1.0 %) 0.2 Neut # (Auto) (K/mm3) 13.3 Lymph # (Auto) (K/mm3) 1.2 Divide # (Auto) (K/mm3) 0.7 Eos # (Auto) (K/mm3) 0.01 Baso # (Auto) (K/mm3) 0.0 Immature Plt Fraction (0.0 - 10.8 %) 0.0 Diagnosis, Assessment Plan Diagnosis, Assessment Plan Assessment: nml progress Plan: routine care, discharge tomorro w at 0840 RPT #:[id number] END OF REPORT 2018-11-22 22:02:00-00:00 [facility]) OB Delivery Note REPORT#:[id number] REPORT STATUS: Signed DATE:11/22/18 TIME: 2201 PATIENT: ANDREA GONZALEZ UNIT #: [id number] ROOM/BED: : 95 AGE: 23 SEX: F ATTEND: Akash Salgado MD ADM AUTHOR: Lalo Salgado MD * ALL edits or amendments must be made on the [employer]/computer document * OB Delivery Pre-delivery [place] evaluation at delivery: NRP certified pe rsonnel Admission EGA (wks/days): 37 weeks (+3) Baby A Information Baby A information Delivery date: 11/22/18 Delivery time: 1613 status: live born Gender: male 1 minute: 8 5 minutes: 9 Presentation: vertex ABG details Baby A Cord blood gases: not collected Nuchal cord Baby A Nuchal cord: no Vaginal Delivery Vaginal delivery Labor: induced Medications/Devices used: oxytocin Vaginal delivery: spontaneous Amniotic fluid: clear Anesthesia type: epidural anesthesia Episiotomy: none Laceration repair: yes Episiotomy/laceration suture: 2-0 EBL (ml's): 300 Hemorrhage: no Placenta: spontaneous, intact Post delivery meds used: oxytocin Count: correct, vag exam neg for sponges Mother's condition: mother stable Infant's condition: infant stable in room Lacerations: Perineal laceration(s): 2nd Degree w/vag muscle s High vaginal laceration: no at 2206 RPT #:[id number] END OF REPORT 2018-11-22 07:54:00-00:00 [facility] ([facility]) OB Admission / H P REPORT#:[id number] REPORT STATUS: Signed DATE:11/22/18 TIME: 0754 PATIENT: ANDREA GONZALEZ UNIT #: [id number] ROOM/BED: [address] : 95 AGE: 23 SEX: F ATTEND: Akash Salgado MD ADM AUTHOR: Jazmine Fuller MD * ALL edits or amendments must be made on the [employer]/computer document * OB Admission H P Hx Chief complaint: suspected ruptured memb HPI: presented to [facility] following SROM at approximately 0200. +nitrazine. rare contractions. 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, no drug use Medications: Home Medications: Medication Dose/Rte/Freq Days Qty Entered Last Max Daily Dose Reviewed PNV/FE FUM/FA 1 TAB PO DAILY 11/20/18 11/22/18 ( MULTIVITAMIN) 3999 3173 Strength: 1 TAB TAB FERROUS SULFATE 325 MG PO DAILY 11/20/18 (FEOSOL) 3966 0345 Strength: 325 MG TAB Current Hospital Medications: Electrolytic, Caloric, And Guerline Sig/Guilherme Start time Last Medication Dose Route Stop Time Status Admin Dextrose/Lactated 1,000 ML ASDIR 11/22 0400 AC Ringer's IV 01/21 035 (DEXTROSE 5% IN LACTATED RINGERS 1000 ML) Lactated Ringer's 2,000 ML ASDIR PRN 11/22 0400 AC (LACTATED RINGERS) IV Lactated Ringer's 1,000 ML ONCE 11/22 350 AC (LACTATED RINGERS) IV 11/23 035 Oxytocics Sig/Guilherme Start time Last Medication Dose Route Stop Time Status Admin Oxytocin 500 ML ASDIR PRN 11/23 399 AC (OXYTOCIN 30 UNITS/ IV 12/06 358 500 ML NORMAL SALINE) Oxytocin 500 ML ASDIR PRN 11/23 399 AC (OXYTOCIN 30 UNITS/ IV 500 ML NORMAL SALINE) Other Sig/Guilherme Start time Last Medication Dose Route Stop Time Status Admin Pharmacy Profile Note 0 .STK-MED ONE 11/22 051 2 DC (EPIDURAL TRAY) .ROUTE Allergies Coded Allergies: No Known Allergies (11/22/18) Objective General VS: Last Documented: Result Date Time B/P Mean 97.0 11/22 0754 B/P 127/79 11/22 0754 Pulse 83 11/22 075 Temp 98.6 11/22 0700 Resp 17 11/22 0334 Vital Signs: Date Time Temp Pulse Resp B/P B/P Pulse O2 O2 F low FiO2 Mean Ox Delivery Rate 11/22 075 97.0 11/22 0754 83 127/79 11/22 0753 118.0 11/22 0753 85 143/99 11/22 0700 98.6 11/22 0457 111.0 11/22 0457 93 136/93 11/22 0427 114.0 11/22 0427 98.6 88 143/96 11/22 0404 110.0 11/22 0404 94 139/90 11/22 0354 113.0 11/22 0354 91 142/94 11/22 0345 116.0 11/22 0345 93 143/96 11/22 0334 111.0 11/22 0334 98.2 89 17 142/88 Vital Signs Date Temp Pulse Resp B/P B/P Mean Pulse Ox FiO 2 11/22 98.2-98.6 83-94 17 127-143/79-99 97.0-118 .0 Physical Exam Neuro: Exam: alert, oriented x3, normal speech Abdomen: gravid, soft, no abnormal tenderness Uterine activity: Monitor: toco Frequency (description): irregular Cervical/ exam: Dilatation (cm): 3 Effacement (%): 50 station: - 3 (0310) presentation: cephalic Membranes: Membranes: SROM Lower extremities: Edema: trace Calf tenderness: negative Baby A: Baby A baseline: 130 bpm Baby A variability: moderate 6-25 bpm Baby A accelerations: 15 X 15 Baby A decelerations: none Baby A FHR category: category 1 Result Findings/Data: Laboratory Tests: 11/22 11/22 11/22 0610 0540 0455 Chemistry Sodium (135 - 145 mEq/L) 137 Potassium (3.5 - 5.0 mEq/L) 4.9 Chloride (100 - 115 mEq/L) 104 Carbon Dioxide (22 - 31 mEq/L) 22 Anion Gap (10 - 20) 16.20 BUN (7 - 18 mg/dL) 6 L Creatinine (0.5 - 1.0 mg/dL) 0.4 L Glomerular Filtr Rate (>60 ml/min) 198 Glucose (65 - 110 mg/dL) 79 Uric Acid (2.6 - 6.0 mg/dL) 5.1 Calcium (8.4 - 10.2 mg/dL) 8.8 Total Bilirubin (0.2 - 1.0 mg/dL) 0.2 AST (15 - 37 units/L) 39 H ALT (12 - 78 units/L) 13 Total Alk Phosphatase (46 - 116 units/L) 196 H Total Protein (6.3 - 8.2 gm/dL) 6.3 Albumin (3.4 - 4.8 gm/dL) 2.9 L Hematology WBC (6.6 - 12.1 K/mm3) 9.0 RBC (3.45 - 5.01 M/mm3) 4.19 Hgb (10.7 - 13.9 g/dL) 11.9 Hct (32.1 - 42.1 %) 36.9 MCV (84.1 - 94.8 fL) 88 MCH (27 - 35 pg) 28.4 MCHC (32.2 - 34.1 gm/dL) 32.2 RDW (12.4 - 16.5 %) 14.9 Plt Count (133 - 385 K/mm3) 184 MPV (9.1 - 12.7 fl) 12.9 H Neut % (Auto) (56.5 - 79.4 %) 69.0 Lymph % (Auto) (14.3 - 34.3 %) 23.4 Divide % (Auto) (5.1 - 10.4 %) 5.5 Eos % (Auto) (0.1 - 3.0 %) 1.0 Baso % (Auto) (0.1 - 1.0 %) 0.3 Neut # (Auto) (K/mm3) 6.2 Lymph # (Auto) (K/mm3) 2.1 Divide # (Auto) (K/mm3) 0.5 Eos # (Auto) (K/mm3) 0.09 Baso # (Auto) (K/mm3) 0.0 Immature Plt Fraction (0.0 - 10.8 %) 0.0 Serology Treponema pallidum Ab (NONREACTIVE) NONREACTIVE Hep Bs Antigen (NONREACTIVE) NONREACTIVE Urines Ur Random Creatinine (mg/dL) 75.2 U Random Total Protein (mg/dL) 36.0 Protein/Creatinin Ratio (<200 mg/gcrea) 470.0 H Diagnosis, Assessment Plan Diagnosis, Assessment Plan Free Text A P: 23 yo G1 at 37+1 admitted with SROM, preeclampsi a without severe features pitocin augmentation GBS neg status reassuring epidural PRN Consultation(s): Consultation performed: anesthesia Electronically Signed by Jazmine Fuller MD on at 0830 RPT #:[id number] END OF REPORT"
[2023-03-03 04:16] LABS: Absolute Lymphocytes (CBC) 3.6 K/uL (0.7-4.9); Hematocrit 36.7 % (36.0-45.0); Lymphocytes % 46.5 % (15.3-44.8); MCV 80.1 fL (80-100); MPV 8.6 fL (7.6-11.3); RBC Red Blood Cell Count 4.58 M/uL (3.86-4.86)
[2023-03-03 04:18] LABS: Specific Gravity 1.019 (1.005-1.030); Urine Bacteria <20 /HPF (<20); Urine Bilirubin NEGATIVE (Negative); Urine Blood Negative (Negative); Urine Clarity Turbid (Clear); Urine Color Colorless (Yellow); Urine Glucose NEGATIVE (Negative); Urine Mucus Slight /HPF (None Seen); Urine Protein NEGATIVE (Negative); Urine RBC <5 /HPF (None Seen); Urine Urobilinogen Normal (Normal); Urine pH 6.5 (5.0-7.0)
[2023-03-03 04:33] LABS: Bilirubin Total 0.1 mg/dL (0.2-1.0); Potassium 3.6 mEq/L (3.5-5.1); Protein, Total 7.3 g/dL (6.4-8.2)
[2023-03-03] MEDS ORDERED: NA CHLORIDE 0.9% 1,000 ML ONE (04:46)
[2023-03-03] MEDS ORDERED: KETOROLAC 30 MG/ML INJ ONE (04:59)
--- NOTE | 2023-03-03 05:32 | ER ---
Nurse's Notes [facility] Name: Cynthia Sears Age: 27 yrs Sex: Female : 1995 Arrival Date: 03/03/2023 Time: 03:40 Bed 5 Private MD: Diagnosis: Abdominal tenderness;Constipation;Acute cystitis Presentation: 03/03 03:56 Chief complaint: Patient states: I had a UTI about 2 weeks ago and i was sent home with kd3 antibiotics and it got better. This past week i feel like my UTI symptoms are coming back but i also have some pain in my left lower stomach area. Coronavirus screen: Vaccine status: Patient reports receiving the 2nd dose of the covid vaccine. Ebola Screen: No symptoms or risks identified at this time. Initial Sepsis Screen: Does the patient meet any 2 criteria? No. Patient's initial sepsis screen is negative. Does the patient have a suspected source of infection? No. Patient's initial sepsis screen is negative. Risk Assessment: Do you want to hurt yourself or someone else? Patient reports no desire to harm self or others. Onset of symptoms was March 03, 2023. 03:56 Method Of Arrival: Ambulatory kd3 03:56 Acuity: NIDHI 3 kd3 Triage Assessment: 03:58 General: Appears uncomfortable, Behavior is calm, cooperative. Pain: Complains of pain kd3 in left lower quadrant. GI: Abdomen is non-distended, Reports lower abdominal pain. 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 - Social history:: Smoking status: Patient denies any tobacco usage or history of. - Family history:: not pertinent. Screenin:00 [facility] ED Fall Risk Assessment (Adult) History of falling in the last 3 months, kd3 including since admission No falls in past 3 months (0 pts) Confusion or Disorientation No (0 pts) Intoxicated or Sedated No (0 pts) Impaired Gait No (0 pts) Mobility Assist Device Used No (0 pt) Altered Elimination No (0 pt) Score/Fall Risk Level 0 - 2 = Low Risk Maintained a safe environment. Abuse screen: Denies threats or abuse. Denies injuries from another. Nutritional screening: No deficits noted. Tuberculosis screening: No symptoms or risk factors identified. Assessment: 03:59 General: Appears uncomfortable, Behavior is calm, cooperative. Pain: Complains of pain kd3 in left lower quadrant. Neuro: Level of Consciousness is awake, alert, obeys commands, Oriented to person, place, time, situation. Cardiovascular: Patient's skin is warm and dry. Respiratory: Airway is patent Trachea midline Respiratory effort is even, unlabored, Respiratory pattern is regular, symmetrical. : Reports burning with urination. 04:00 GI: Bowel sounds present X 4 quads. Abdomen is tender to palpation in left lower kd3 quadrant. Vital Signs: 03:56 BP 133 / 90; Pulse 88; Resp 16; Temp 98.6; Pulse Ox 100% on R/A; kd3 04:11 BP 117 / 99; Pulse 85; Resp 16 S; Pulse Ox 97% on R/A; kd3 04:52 BP 120 / 76; Pulse 89; Resp 16; Pulse Ox 97% on R/A; kd3 05:38 BP 110 / 68; Pulse 92; Resp 16; Pulse Ox 98% on R/A; kd3 ED Course: 03:41 Patient arrived in ED. am2 03:56 Pam Horvath, RN is Primary Nurse. kd3 03:58 Triage completed. kd3 03:58 Arm band placed on right wrist. kd3 03:59 Marcel Sherman MD is Attending Physician. christina 04:00 Patient has correct armband on for positive identification. Placed in gown. Bed in low kd3 position. Call light in reach. Side rails up X 1. Provided Education on: . 04:11 CBC with Diff Sent. kd3 04:11 CMP Sent. kd3 04:11 Lipase Sent. kd3 04:11 Test, Urine Sent. kd3 04:11 Urinalysis w/ reflexes Sent. kd3 04:11 No provider procedures requiring assistance completed. Inserted saline lock: 20 gauge kd3 in right antecubital area, using aseptic technique. Blood collected. 05:09 CT Abd/Pelvis - IV Contrast Only In Process Unspecified. EDMS 05:39 IV discontinued, intact, bleeding controlled, No redness/swelling at site. Pressure kd3 dressing applied. Administered Medications: 04:52 Drug: NS 0.9% IV 1000 ml Route: IV; Rate: 1 bolus; Site: right antecubital; kd3 06:08 Follow up: IV Status: Completed infusion; IV Intake: 1000ml kd3 04:52 Drug: Ketorolac IVP 30 mg Route: IVP; Site: right antecubital; kd3 05:38 Follow up: Response: No adverse reaction; Pain is decreased kd3 05:38 Drug: Rocephin IV 1 grams Route: IV; Rate: per protocol; Site: right antecubital; kd3 05:38 Follow up: IV Status: Completed infusion; IV Intake: 10ml kd3 Medication: 04:00 VIS not applicable for this client. kd3 Intake: 05:38 IV: 10ml; Total: 10ml. kd3 06:08 IV: 1000ml; Total: 1010ml. kd3 Outcome: 05:31 Discharge ordered by MD. vasquez 05:38 Discharged to home ambulatory. kd3 05:38 Condition: stable 05:38 Discharge instructions given to patient, Instructed on discharge instructions, follow up and referral plans. medication usage, Demonstrated understanding of instructions, follow-up care. 05:39 Prescriptions given X 5 kd3 06:08 Patient left the ED. kd3 Signatures: Dispatcher [employer] EDMarcel Santa MD MD cha Moreno, Amanda am2 Doucette, Kyli, RN RN kd3
--- NOTE | 2023-03-03 05:32 | EDPHYS ---
Physician Documentation [facility] Name: Cynthia Sears Age: 27 yrs Sex: Female : 1995 Arrival Date: 03/03/2023 Time: 03:40 Bed 5 Private MD: ED Physician Marcel Sherman HPI: 03/03 04:55 This 27 yrs old Female presents to ER via Ambulatory with complaints of christina Abdominal Pain - left side. 04:55 The patient presents with abdominal pain in the left upper quadrant, in the left lower christina quadrant, abdominal distention in the upper abdomen, in the lower abdomen. Onset: The symptoms/episode began/occurred 2 day(s) ago. The symptoms radiate to Associated signs and symptoms: none. The symptoms are described as crampy. Modifying factors: The symptoms are alleviated by nothing, the symptoms are aggravated by nothing. Severity of pain: At its worst the pain was moderate in the emergency department the pain is unchanged. The patient has not experienced similar symptoms in the past. 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 - Social history:: Smoking status: Patient denies any tobacco usage or history of. - Family history:: not pertinent. ROS: 04:55 Constitutional: Negative for fever, chills, and weight loss, Eyes: Negative for injury, christina pain, redness, and discharge, ENT: Negative for injury, pain, and discharge, Neck: Negative for injury, pain, and swelling, Cardiovascular: Negative for chest pain, palpitations, and edema, Respiratory: Negative for shortness of breath, cough, wheezing, and pleuritic chest pain, Back: Negative for injury and pain, : Negative for injury, bleeding, discharge, and swelling, MS/Extremity: Negative for injury and deformity, Skin: Negative for injury, rash, and discoloration, Neuro: Negative for headache, weakness, numbness, tingling, and seizure, Psych: Negative for depression, anxiety, suicide ideation, homicidal ideation, and hallucinations, Allergy/Immunology: Negative for hives, rash, and allergies, Endocrine: Negative for neck swelling, polydipsia, polyuria, polyphagia, and marked weight changes. 04:55 Abdomen/GI: Positive for abdominal pain, of the posterior aspect of left lateral abdomen, anterior aspect of left lateral abdomen and left lower quadrant. Exam: 04:55 Constitutional: This is a well developed, well nourished patient who is awake, alert, christina and in no acute distress. Head/Face: Normocephalic, atraumatic. Eyes: Pupils equal round and reactive to light, extra-ocular motions intact. Lids and lashes normal. Conjunctiva and sclera are non-icteric and not injected. Cornea within normal limits. Periorbital areas with no swelling, redness, or edema. ENT: Nares patent. No nasal discharge, no septal abnormalities noted. Tympanic membranes are normal and external auditory canals are clear. Oropharynx with no redness, swelling, or masses, exudates, or evidence of obstruction, uvula midline. Mucous membranes moist. Neck: Trachea midline, no thyromegaly or masses palpated, and no cervical lymphadenopathy. Supple, full range of motion without nuchal rigidity, or vertebral point tenderness. No Meningismus. Chest/axilla: Normal chest wall appearance and motion. Nontender with no deformity. No lesions are appreciated. Cardiovascular: Regular rate and rhythm with a normal S1 and S2. No gallops, murmurs, or rubs. Normal PMI, no JVD. No pulse deficits. Respiratory: Lungs have equal breath sounds bilaterally, clear to auscultation and percussion. No rales, rhonchi or wheezes noted. No increased work of breathing, no retractions or nasal flaring. Abdomen/GI: Soft, non-tender, with normal bowel sounds. No distension or tympany. No guarding or rebound. No evidence of tenderness throughout. Back: No spinal tenderness. No costovertebral tenderness. Full range of motion. Skin: Warm, dry with normal turgor. Normal color with no rashes, no lesions, and no evidence of cellulitis. MS/ Extremity: Pulses equal, no cyanosis. Neurovascular intact. Full, normal range of motion. Neuro: Awake and alert, GCS 15, oriented to person, place, time, and situation. Cranial nerves II-XII grossly intact. Motor strength 5/5 in all extremities. Sensory grossly intact. Cerebellar exam normal. Normal gait. Psych: Awake, alert, with orientation to person, place and time. Behavior, mood, and affect are within normal limits. Vital Signs: 03:56 BP 133 / 90; Pulse 88; Resp 16; Temp 98.6; Pulse Ox 100% on R/A; kd3 04:11 BP 117 / 99; Pulse 85; Resp 16 S; Pulse Ox 97% on R/A; kd3 04:52 BP 120 / 76; Pulse 89; Resp 16; Pulse Ox 97% on R/A; kd3 05:38 BP 110 / 68; Pulse 92; Resp 16; Pulse Ox 98% on R/A; kd3 MDM: 03:59 Patient medically screened. christina 04:57 Differential diagnosis: diverticulitis, Endometriosis, non-specific abd pain, christina Pyelonephritis, Ureterolithiasis, urinary tract infection. Data reviewed: vital signs, nurses notes, lab test result(s), radiologic studies, CT scan. Consideration of Admission/Observation Escalation of care including admission/observation considered. I considered the following discharge prescriptions or medication management in the emergency department Medications were administered in the Emergency Department. See MAR. Independent interpretation of the following test(s) in the Emergency Department CT Scan: My interpretation is ct stone protocol. Test considered but Not performed: Ultrasound no abd usg. Care significantly affected by the following chronic conditions: none, known gall stones. Counseling: I had a detailed discussion with the patient and/or guardian regarding: the historical points, exam findings, and any diagnostic results supporting the discharge/admit diagnosis, lab results, radiology results, the need for outpatient follow up, for definitive care, a family practitioner, an OB/Gyne specialist. 03/03 03:56 Order name: CBC with Diff; Complete Time: 04:28 pf1 03/03 03:56 Order name: CMP; Complete Time: 04:54 pf1 03/03 03:56 Order name: Lipase; Complete Time: 04:54 pf1 03/03 03:56 Order name: Test, Urine; Complete Time: 04:28 pf1 03/03 03:56 Order name: Urinalysis w/ reflexes; Complete Time: 04:28 pf1 03/03 04:31 Order name: CT Abd/Pelvis - IV Contrast Only christina 03/03 03:56 Order name: IV Saline Lock; Complete Time: 04:11 pf1 03/03 03:56 Order name: Labs collected and sent; Complete Time: 04:11 pf1 Administered Medications: 04:52 Drug: NS 0.9% IV 1000 ml Route: IV; Rate: 1 bolus; Site: right antecubital; kd3 06:08 Follow up: IV Status: Completed infusion; IV Intake: 1000ml kd3 04:52 Drug: Ketorolac IVP 30 mg Route: IVP; Site: right antecubital; kd3 05:38 Follow up: Response: No adverse reaction; Pain is decreased kd3 05:38 Drug: Rocephin IV 1 grams Route: IV; Rate: per protocol; Site: right antecubital; kd3 05:38 Follow up: IV Status: Completed infusion; IV Intake: 10ml kd3 Disposition Summary: 03/03/23 05:31 Discharge Ordered Location: Home [facility] Problem: new [facility] Symptoms: have improved [facility] Condition: Stable [facility] Diagnosis - Abdominal tenderness christina - Constipation christina - Acute cystitis christina Followup: christina - With: Private Physician - When: 2 - 3 days - Reason: Recheck today's complaints, Continuance of care, Re-evaluation by your physician Discharge Instructions: - Discharge Summary Sheet christina - Abdominal Pain, Adult christina - Constipation, Adult christina - Urinary Tract Infection, Adult christina - Constipation, Adult, [id number] christina - Abdominal Pain, Adult, [id number] [facility] Forms: - Medication Reconciliation Form [facility] - Thank You Letter [facility] - Antibiotic Education [facility] - Prescription Opioid Use [facility] - Patient Portal Instructions [facility] Prescriptions: - Cipro 250 mg Oral Tablet - take 1 tablet by ORAL route every 12 hours; 14 tablet; Refills: 0, Product [facility] Selection Permitted - Ibuprofen 600 mg Oral Tablet - take 1 tablet by ORAL route every 6 hours As needed take with food; 30 tablet; christina Refills: 0, Product Selection Permitted - Zofran 4 mg Oral Tablet - take 1 tablet by ORAL route every 12 hours As needed; 20 tablet; Refills: 0, [facility] Product Selection Permitted - Lactulose 10 gram/15 mL Oral Solution - take 30 milliliters by ORAL route once daily; 200 milliliter; Refills: 0, [facility] Product Selection Permitted - dicyclomine 20 mg Oral Tablet - take 1 tablet by ORAL route 4 times per day; 28 tablet; Refills: 0, Product [facility] Selection Permitted Signatures: Dispatcher [employer] Marcel Solis MD MD cha Doucette, Kyli, RN RN kd3 Castillo, Jennifer, RN RN pf1
[2023-03-03] MEDS ORDERED: CEFTRIAXONE 1000 MG/VIAL ONE (05:42)
[2023-03-03 06:31] VITALS: TEMP 98.6
[2023-03-03 06:35] VITALS: BP 110/68; O2SAT 98
--- NOTE | 2023-03-03 17:54 | RAD REPORT ---
EXAM DESCRIPTION: Abdomen Pelvis W Contrast CLINICAL HISTORY: 27 years Female ABD PAIN COMPARISON: None TECHNIQUE: CT of the abdomen and pelvis with intravenous contrast. All CT scans at this facility use dose modulation, iterative reconstruction, and/or weight based dosi ng when appropriate to reduce radiation dose to as low as reasonably achievable. FINDINGS: Lower thorax: Lung bases are clear Abdomen: Stomach: Within normal limits Liver: No focal lesions. No intrahepatic ductal distention. Gallbladder: Cholelithiasis. Pancreas: Within normal limits Spleen: Within normal limits Right kidney: No hydronephrosis. No focal lesion. Left kidney: No hydronephrosis. No focal lesion. Adrenal glands: Within normal limits Vascular structures: Within normal limits Nodes: No lymphadenopathy by size criteria Pelvis: Small bowel: No significant distention. Appendix: Within normal limits Colon: No distention or acute pericolonic edema. Moderate colonic stool burden. Peritoneum: No free intraperitoneal fluid or air. Bones: No acute bone findings. Bladder: Mild diffuse wall thickening, could be secondary to underdistention. Reproductive organs: No acute findings. Intrauterine device visualized. Soft tissues: Small fat-containing umbilical hernia. IMPRESSION: 1. No acute abdominopelvic findings. 2. Moderate colonic stool burden. 3. Cholelithiasis. 4. Mild diffuse bladder wall thickening, could be secondary to underdistention. Correlate with urin alysis for evidence of cystitis. Electronically signed by: Steve Gill MD 03/03/2023 5:25 AM CDT Due to temporary technical issues with the PACS/Fluency reporting system, reports are being signed by the in house radiologists without review as a courtesy to insure prompt reporting. The interpreting radiologist is fully responsible for the content of the report.
== END 2023-03-03 06:08 | disposition home or self-care (01) ==
LOC: ER 03:40
DX: K59.00 Constipation, unspecified (principal); N30.00 Acute cystitis without hematuria
CPT/HCPCS: 36415; 74177; 80053; 81001; 81025; 83690; 85025; 96361; 96374; 96375; 99284; J0696; J7030; Q9967

== ENCOUNTER 2024-05-15 01:06 | Emergency (ER) | payer OTHER, SELFPAY ==
--- OUTSIDE RECORDS SUMMARY | 2024-05-15 04:48 | XMS REPORT | Continuity of Care Document ---
Author Name Unknown Address [address] [place] [address] [facility] thconnect Address [address] [place] [address] Care Team Providers Care Freelance Makeup Artist Name Role Phone CINDY SCHULZ Primary Care Physician Unavailab Cindy Moreira Attending Clinician Unavailable MAYRA MAGANA Attending Clinician Unavailable MAYRA MAGANA Attending Clinician Unavailable Deshawn Quiroz DO Attending Clinician [phone] _[facility] Attending Clinician Unavail able ANTONY DOWD Attending Clinician Unavailable Antony Jimenez Attending Clinician [phone] Diallo Worthington MD Attending Clinician [phone] DIALLO WORTHINGTON Attending Clinician Unavailable Payton Ravi Attending Clinician [phone] David Rendon Attending Clinician + [phone] DAVID TAVERA Attending Clinician Unavailab le Doctor Unassigned, [place] Attending Clinician U julian Jennings INSERTING OPERATOR, Jessica Attending Clinician [phone] [facility] Attending Clinician Unav ailKiesha Atkins Attending Clinician [phone] DESHAWN QUIROZ Admitting Clinician Unavailable ALEISHA_VINAY_Damian_Yadiel Admitting Clinician Unavail able ANTONY DOWD Admitting Clinician Unavailable MAYRA MAGANA Admitting Clinician Unavailable Payers Payer Name Policy Type Policy Number Effective Date Expirati on Date Source [place] OUT OF [place] [id number] 2017 00:00:00 [place] [id number] 2018 00:00:00 Blue Cross [place] 6 [id number] 2019 00:00:00 [facility] Problems Condition Name Condition Details Condition Category Status Onset Date Resolution Date Last Treatment Date Treating Clinician Comments Source No known active problems No known active problems Disease [facility] [id number] PEPITO (generaliz ed anxiety disorder) Problem Active [facility] [id number] Mixed hyperlipid emia Problem Active [facility] [id number] Current moderate episode of major depressive disorder without prior episode Problem Active [facility] Allergies, Adverse Reactions, Alerts Allergy Name Allergy Type Status Severity Reaction(s) Onset Date Inactive Date Treating Clinician Comments Source No Known Allergie s DA Active U 11-22 00:00: 00 [facility] No Known Allergie s DA Active U 11-20 00:00: 00 [facility] NO KNOWN ALLERGIE S Drug Class Active [facility] Social History Social Habit Start Date Stop Date Quantity Comments Source Sexual orientation U [facility] History of Tobacco Use [facility] Sex Assigned At [facility] Exposure to SARS-CoV-2 (event) 2022-02-23 00:00:00 2022-03-05 15:58:00 Yes [facility] History of Social function 2021-10-20 00:00:00 2021-10-20 00:00:00 [facility] Tobacco use and exposure 2020-01-24 00:00:00 2020-01-24 00:00:00 Smokeless tobacco non-user [facility] Smoking Status Start Date Stop Date Source Never Smoker [facility] Medications Ordered Medication Name Filled Medication Name Start Date Stop Date Current Medication? Ordering Clinician Indication Dosage Frequency Signature (SIG) Comments Components Source iopamidol (ISOVUE 370-500 mL) injection 80 mL 12-21 00:30: 00 12-21 00:30 :00 No [id number] 80mL 80 mL, Intravenou s, ONCE, 1 dose, On Ifeoma 12/21/23 at 1930, Routine [facility] ondansetron (ZOFRAN (PF)) injection 4 mg 12-21 00:00: 00 12-20 23:52 :00 No 4mg 4 mg, Slow IV Push, ONCE, 1 dose, On Ifeoma 12/21/23 at 1900, REGINA [facility] morpHINE (4 mg/mL) injection 4 mg 12-21 00:00: 00 12-20 23:52 :00 No 4mg 4 mg, Slow IV Push, ONCE, 1 dose, On Ifeoma 12/21/23 at 1900, STAT [facility] pantoprazol e (PROTONIX) injection 80 mg 12-20 22:45: 00 12-20 22:22 :00 No 80mg 80 mg, Slow IV Push, ONCE, 1 dose, On Ifeoma 12/21/23 at 1745, Routine [facility] ondansetron (ZOFRAN (PF)) injection 4 mg 12-20 22:45: 00 12-20 22:22 :00 No 4mg 4 mg, Slow IV Push, ONCE, 1 dose, On Ifeoma 12/21/23 at 1745, Routine [facility] NaCl 0.9% (NS) bolus infusion 1,000 mL 12-20 22:00: 00 12-21 00:00 :00 No 1000mL at 999 mL/hr, 1,000 mL, IV Infusion, ONCE, 1 dose, On Ifeoma 12/21/23 at 1700, STAT [facility] polyethylen e glycol 3350 (MIRALAX) 17 gram powder 12-20 00:00: 00 Yes [id number] 1{packe t} Take 1 Packet by mouth every 24 (twenty-fo ur) hours as needed for Constipati on. [facility] dicyclomine 20 mg tablet 12-20 00:00: 00 Yes [id number] 20mg Take 1 tablet by mouth 3 (three) times daily as needed for Abdominal pain. [facility] ondansetron 4 mg disintegrat ing tablet 12-20 00:00: 00 Yes [id number] 4mg Take 1 tablet by mouth every 4 (four) hours as needed for Nausea and Vomiting (N/V). [facility] magnesium citrate solution 12-20 00:00: 00 12-21 04:59 :00 No [id number] 300mL Take 300 mL by mouth once now for 1 dose. [facility] iopamidol (ISOVUE 370-500 mL) injection 60 mL 03-05 22:20: 00 03-05 22:30 :00 No [id number] 60mL 60 mL, Intravenou s, ONCE, 1 dose, On 03/05/22 at 1730, Routine [facility] NaCl 0.9% (NS) bolus infusion 1,000 mL 03-05 21:30: 00 03-05 22:30 :00 No 1000mL at 999 mL/hr, 1,000 mL, IV Infusion, ONCE, 1 dose, On 03/05/22 at 1630, REGINA [facility] ondansetron (ZOFRAN (PF)) injection 4 mg 03-05 20:45: 00 03-05 20:53 :00 No 4mg 4 mg, Slow IV Push, ONCE, 1 dose, On 03/05/22 at 1545, REGINA [facility] ketorolac (TORADOL) injection 30 mg 03-05 20:45: 00 03-05 20:53 :00 No 30mg 30 mg, Slow IV Push, ONCE, 1 dose, On 03/05/22 at 1545, REGINA [facility] ondansetron 4 mg disintegrat ing tablet 03-05 00:00: 00 12-20 00:00 :00 No [id number] 4mg Take 1 tablet by mouth every 8 (eight) hours as needed for Nausea and Vomiting (N/V). [facility] iopamidol (ISOVUE 370-500 mL) injection 100 mL 10-21 18:45: 00 10-21 19:00 :00 No [id number] 100mL 100 mL, Intravenou s, ONCE, 1 dose, On Ifeoma 10/21/21 at 1400, Routine [facility] metoclopram angela HCl (REGLAN) injection 10 mg 10-21 18:00: 00 10-21 17:45 :00 No 10mg 10 mg, Slow IV Push, ONCE, 1 dose, On Ifeoma 10/21/21 at 1300, REGINA [facility] FENTanyl PF (SUBLIMAZE (PF)) injection 75 mcg 10-21 18:00: 00 10-21 17:46 :00 No 75ug 75 mcg, Slow IV Push, ONCE, 1 dose, On Ifeoma 10/21/21 at 1300, STAT [facility] docusate sodium 250 mg capsule 10-21 00:00: 00 Yes [id number] 250mg Take 1 capsule by mouth once daily as needed for Constipati on. [facility] dicyclomine 20 mg tablet 10-21 00:00: 00 12-20 00:00 :00 No [id number] 20mg Take 1 tablet by mouth 4 (four) times daily. [facility] ondansetron 4 mg disintegrat ing tablet 10-21 00:00: 00 12-20 00:00 :00 No [id number] 4mg Take 1 tablet by mouth every 4 (four) hours as needed for Nausea and Vomiting (N/V). [facility] magnesium citrate solution 10-21 00:00: 00 10-22 04:59 :00 No [id number] 300mL Take 300 mL by mouth once now for 1 dose. [facility] buPROPion HCl ER (XL) 150 MG buPROPion HCl ER (XL) 150 MG No buPROPion HCl ER (XL) 150 MG buPROPion HCl ER (XL) 150 MG buPROPion HCl ER (XL) 150 MG No buPROPion HCl ER (XL) 150 MG Vital Signs Vital Name Observation Time Observation Value Comments S ource Systolic blood pressure 2023-12-22 02:00:00 112 mm[Hg] [facility] Diastolic blood pressure 2023-12-22 02:00:00 90 mm[Hg] [facility] Heart rate 2023-12-22 02:00:00 90 /min [facility] Body temperature 2023-12-22 02:00:00 37.06 [facility] Respiratory rate 2023-12-22 02:00:00 18 /min [facility] Oxygen saturation in Arterial blood by Pulse oximetry 2023-12-22 02:00:00 99 /min [facility] Body height 2023-12-21 21:38:00 154.9 cm [facility] Body weight 2023-12-21 21:38:00 72.576 kg [facility] BMI 2023-12-21 21:38:00 30.23 kg/m2 [facility] Systolic blood pressure 2022-03-05 23:00:00 122 mm[Hg] [facility] Diastolic blood pressure 2022-03-05 23:00:00 78 mm[Hg] [facility] Heart rate 2022-03-05 23:00:00 88 /min [facility] Respiratory rate 2022-03-05 23:00:00 15 /min [facility] Oxygen saturation in Arterial blood by Pulse oximetry 2022-03-05 23:00:00 99 /min [facility] Body temperature 2022-03-05 20:29:00 37.39 [facility] Body height 2022-03-05 20:29:00 154.9 cm [facility] Body weight 2022-03-05 20:29:00 70.761 kg [facility] BMI 2022-03-05 20:29:00 29.48 kg/m2 [facility] Systolic blood pressure 2021-10-21 20:22:00 123 mm[Hg] [facility] Diastolic blood pressure 2021-10-21 20:22:00 90 mm[Hg] [facility] Heart rate 2021-10-21 20:22:00 76 /min [facility] Body temperature 2021-10-21 20:22:00 37.5 [facility] Respiratory rate 2021-10-21 20:22:00 18 /min [facility] Oxygen saturation in Arterial blood by Pulse oximetry 2021-10-21 20:22:00 100 /min [facility] Body height 2021-10-21 16:18:00 154.9 cm [facility] Body weight 2021-10-21 16:18:00 72.576 kg [facility] BMI 2021-10-21 16:18:00 30.23 kg/m2 [facility] Body weight 2021-10-21 01:20:00 74.98 kg [facility] BMI 2021-10-21 01:20:00 31.23 kg/m2 [facility] Systolic blood pressure 2021-10-21 01:19:00 129 mm[Hg] [facility] Diastolic blood pressure 2021-10-21 01:19:00 87 mm[Hg] [facility] Heart rate 2021-10-21 01:19:00 91 /min [facility] Body temperature 2021-10-21 01:19:00 36.72 [facility] Respiratory rate 2021-10-21 01:19:00 16 /min [facility] Oxygen saturation in Arterial blood by Pulse oximetry 2021-10-21 01:19:00 99 /min [facility] Systolic blood pressure 2021-10-20 23:22:00 129 mm[Hg] [facility] Diastolic blood pressure 2021-10-20 23:22:00 85 mm[Hg] [facility] Body temperature 2021-10-20 23:20:00 36.72 [facility] Respiratory rate 2021-10-20 23:20:00 18 /min [facility] Body height 2021-10-20 23:20:00 154.9 cm [facility] Body weight 2021-10-20 23:20:00 74.934 kg [facility] BMI 2021-10-20 23:20:00 31.21 kg/m2 [facility] Oxygen saturation in Arterial blood by Pulse oximetry 2021-10-20 23:20:00 100 /min [facility] Heart rate 2021-10-20 23:20:00 89 /min [facility] height 2021-07-07 16:30:00 61 [in_i] Commo n [facility] weight 2021-07-07 16:30:00 163 [lb_av] Comm on [facility] temperature 2021-07-07 16:30:00 98 [degF] Comm on [facility] bmi 2021-07-07 16:30:00 30.8 kg/m2 Commo n [facility] Procedures Procedure Date / Time Performed Performing Clinician Source CT ABDOMEN PELVIS W CONTRAST 2023-12-21 23:37:03 Deshawn [facility]iroz [facility] POCT TEST 2023-12-21 22:21:00 Bobo [facility] LIPASE 2023-12-21 22:19:00 Deshawn Quiroz [facility] COMP. METABOLIC PANEL ([id number]) 2023-12-21 22:19:00 Deshawn [facility] LIPID PANEL ([id number])(TOTAL CHOLESTEROL, TRIGLYCERIDES, HDL) 2023-12-21 22:19:00 Deshawn [facility] CBC WITH DIFF 2023-12-21 22:19:00 Deshawn Quiroz [facility] URINALYSIS 2023-12-21 22:19[facility] 2022-03-05 22:23:55 Antony [facility]d [facility] POCT TEST 2022-03-05 20:56:00 Antony Dowd [facility] LIPASE 2022-03-05 20:46:00 Antony Dowd [facility] COMP. METABOLIC PANEL ([id number]) 2022-03-05 20:46:00 [facility]y Dodw [facility] CBC WITH DIFF 2022-03-05 20:46:00 Antony Dowd [facility] URINALYSIS 2022-03-05 20:46:00 Antony Dwod [facility] CONSENT/REFUSAL FOR DIAGNOSIS AND TREATMENT 2022-03-05 20:26:39 Doctor Unassigned, [facility] CT ABDOMEN PELVIS W CONTRAST 2021-10-21 18:47:33 Mayra [facility]ana [facility] LIPASE 2021-10-21 17:43:00 Mayra Magana [facility] COMP. METABOLIC PANEL ([id number]) 2021-10-21 17:43:00 [facility] CBC WITH DIFF 2021-10-21 17:43:00 Mayra Magnaa [facility] PROTHROMBIN TIME / INR 2021-10-21 17:43:00 Glenroy [facility] ACTIVATED PARTIAL THRMPLAS SG 2021-10-21 17:43:00 [facility] URINALYSIS 2021-10-21 17:43:00 Mayra Magana [facility] POCT TEST 2021-10-21 17:40:00 Carlos [facility] CONSENT/REFUSAL FOR DIAGNOSIS AND TREATMENT 2021-10-21 16:14:17 Doctor Unassigned, [facility] CONSENT/REFUSAL FOR DIAGNOSIS AND TREATMENT 2021-10-21 01:18:47 Doctor Unassigned, [place] POCT TEST 2021-10-20 23:02[facility]20 [facility] Start Date/Time End Date/Time Encounter Type Admission Type Attending [facility] Care Facility Care Department Encounter ID Source 2024-05-10 12:36:00 Outpatient Schulz, Cindy STLMLC STLMLC [id number] [facility] 2024-05-09 12:11:00 Outpatient Schulz, Cindy STLMLC STLMLC [id number] [facility] 2022-04-21 10:35:01 Outpatient Schulz, Cindy STLMLC STLMLC [id number] [facility] 2022-03-10 16:57:00 Outpatient Schulz, Cindy STLMLC STLMLC [id number] [facility] 2021-11-05 09:17:03 Outpatient Schulz, Cindy STLMLC STLMLC [id number] [facility] 2021-09-27 09:06:03 Outpatient Schulz, Cindy STLMLC STLMLC [id number] [facility] 2021-08-25 14:19:10 Outpatient Schulz, Cindy STLMLC STLMLC [id number] [facility] 2021-08-25 12:32:42 Outpatient Schulz, Cindy STLMLC STLMLC [id number] [facility] 2021-08-25 12:31:11 Outpatient Schulz, Cindy STLMLC STLMLC [id number] [facility] 2021-08-25 12:27:59 Outpatient Schulz, Cindy STLMLC STLMLC [id number] [facility] 2023-12-21 16:46:00 2023-12-21 21:15:00 Emergency X MAYRA MAGANA [facility]LL [facility] ERT [id number] [facility] 2023-12-21 16:46:00 2023-12-21 21:15:00 Emergency Quiroz Deshawn Mayra Magana [facility] [id number] 350.1.13.10 4.2.7.2.686 [id number] [facility] 2023-06-27 00:00:00 2023-06-27 00:00:00 Outpatient GC_TERESOOM_ Damian_G PRIV PRIV [id number] [facility] 2023-06-26 00:00:00 2023-06-26 00:00:00 Outpatient GC_TERESOOMC_ Damian_G PRIV PRIV [id number] [facility] 2022-03-10 00:00:00 2022-03-10 00:00:00 (WEB) STLMLC STLC [id number] [facility] 2022-03-05 15:30:00 2022-03-05 19:25:00 Emergency X ANTONY DOWD [facility] ERT [id number] [facility] 2022-03-05 15:30:00 2022-03-05 19:25:00 Emergency Antony Dowd [facility] [id number] 350.1.13.10 4.2.7.2.686 [id number] [facility] 2022-03-03 00:00:00 2022-03-03 00:00:00 ([place]) Nurse Visit STLMLC STLC [id number] [facility] 2022-03-02 00:00:00 2022-03-02 00:00:00 (TEL) STLMLC STLMLC [id number] [facility] 2021-10-21 11:22:00 2021-10-21 15:30:00 Emergency X MAYRA MAGANA [facility] ERT [id number] [facility] 2021-10-21 11:22:00 2021-10-21 15:30:00 Emergency Mayra Magana [facility] [id number] 350.1.13.10 4.2.7.2.686 [id number] [facility] 2021-10-20 20:23:00 2021-10-20 23:06:00 Emergency X [facility] ERT [id number] [facility] 2021-10-20 20:23:00 2021-10-20 23:06:00 Emergency [facility] [id number] 350.1.13.10 4.2.7.2.686 [id number] [facility] 2021-10-20 19:00:00 2021-10-20 19:00:00 Urgent Care Diallo Worthington [facility] 1.2.840.114 350.1.13.10 4.2.7.2.686 [id number] [facility] 2021-10-20 19:00:00 2021-10-20 18:20:11 Outpatient R DIALLO WOR[place]INGTON [facility] [id number] [facility] 2021-09-26 00:00:00 2021-09-26 00:00:00 (WEB) STLMLC STLMLC [id number] [facility] 2021-08-10 00:00:00 2021-08-10 00:00:00 OFFICE VISIT ESTAB PT LEVEL 1 STLMLC STLMLC [id number] [facility] 2021-08-10 00:00:00 2021-08-10 00:00:00 (WEB) STLMLC STLMLC [id number] [facility] 2021-07-07 00:00:00 2021-07-07 00:00:00 OFFICE VISIT EST PT LEVEL 3 STLMLC STLMLC [id number] [facility] 2021-06-30 00:00:00 2021-06-30 00:00:00 (WEB) STLMLC STLMLC [id number] [facility] 2021-06-29 00:00:00 2021-06-29 00:00:00 (TEL) STLMLC STLMLC [id number] [facility] 2021-06-29 00:00:00 2021-06-29 00:00:00 (WEB) STLMLC STLMLC [id number] [facility] 2021-06-29 00:00:00 2021-06-29 00:00:00 OFFICE VISIT ESTAB PT LEVEL 1 STLMLC STLMLC [id number] [facility] 2021-06-06 14:58:12 2021-06-06 23:59:00 Hospital Encounter Angel Billsssica [facility] 1.2.840.114 350.1.13.10 4.2.7.2.686 [id number] [facility] 2021-06-06 14:58:11 2021-06-06 23:59:00 Hospital Encounter Angel Billsssica [facility] 1.2.840.114 350.1.13.10 4.2.7.2.686 [id number] [facility] 2021-06-06 14:37:53 2021-06-06 15:49:33 Urgent Care SanjuPayton David Tavera [facility] 1.2.840.114 350.1.13.10 4.2.7.2.686 [id number] [facility] 2021-06-06 14:20:00 2021-06-06 15:49:33 Outpatient R DAVID TAVERA [facility] [id number] [facility] 2021-06-06 00:00:00 2021-06-06 00:00:00 Orders Only Doctor Unassigned, [place] [facility] [id number] 350.1.13.10 4.2.7.2.686 [id number] [facility] 2021-02-16 00:00:00 2021-02-16 00:00:00 Outpatient STLMLC STLMLC [id number] [facility] 2020-12-10 00:00:00 2020-12-10 00:00:00 Outpatient STLMLC STLMLC [id number] [facility] 2020-12-03 00:00:00 2020-12-03 00:00:00 Outpatient STLMLC STLMLC [id number] [facility] 2020-09-23 00:00:00 2020-09-23 00:00:00 Outpatient STLMLC STLMLC [id number] [facility] 2020-09-01 00:00:00 2020-09-01 00:00:00 Outpatient STLMLC STLMLC [id number] [facility] 2020-01-25 00:00:00 2020-01-25 00:00:00 Telephone Jessica Jennings [facility] 1..840.114 350.1.13.10 4.2.7.2.686 [id number] [facility] 2020-01-24 09:38:24 2020-01-24 09:58:24 Urgent Care Pob1, Acute Care Clinic Kiesha Siegel [facility] .2.840.114 350.1.13.10 4.2.7.2.686 [id number] [facility] 2020-01-24 09:40:00 2020-01-24 09:40:00 Outpatient R [facility] [id number] [facility] Results Test Description Test Time Test Comments Results Resul t Comments Source CT ABDOMEN PELVIS W CONTRAST 2023-11-30 4 00:13:55 Ordering Physician: DESHAWN QUIROZ Clinical Indication: Abdominal pain, acute, nonlocalized Additional Clinical Information: Technical Limitations: None Comparison: 03/05/2022 Technique: CT abdomen and pelvis obtained with IV contrast. CT Scan wasperformed using ALARA principles. ? Findings: No infiltrate or effusion the lung bases. Heart size is normal. Liver spleen enhances normally. Cholelithiasis. Adrenal glands and pancreasare normal. Kidneys enhance normally. No hydronephrosis. Appendix is normal. There is an IUD in endometrial cavity. Bladder is normal. No free fluid [facility]. Metabolic Panel ([id number])2023-12-21 22:55:21* Test Item Value Reference Range Interpretation Comme nts NA (test code = 4042409008) 138 mmol/L 135-145 K (test code = 1015912870) 3.9 mmol/L 3.5-5.0 CL (test code = 1097831037) 102 mmol/L 98-108 CO2 TOTAL (test code = 8591846083) 27 mmol/L 23-31 AGAP (test code = 5908962997) 9 2-16 BUN (test code = 4342306017) 9 mg/dL 7-23 GLUCOSE (test code = 5779901666) 90 mg/dL 70-110 CREATININE (test code = 2160-0) 0.60 mg/dL 0.50-1.04 TOTAL BILI (test code = 6685074376) 0.4 mg/dL 0.1-1.1 CALCIUM (test code = 2416622000) 9.1 mg/dL 8.6-10.6 T PROTEIN (test code = 3604971689) 8.1 g/dL 6.3-8.2 ALBUMIN (test code = 1020667831) 4.8 g/dL 3.5-5.0 ALK PHOS (test code = 4936777961) 75 U/L 34-122 ALTv (test code = 1742-6) 19 U/L 5-35 AST(SGOT) (test code = 2762887696) 24 U/L 13-40 eGFR (test code = 52220-4) 125.6 mL/min/1.73m2 CKD-EPI eGFR (20 21). Assuming creatinine has been stable day-to-day for at least three months, the eGFR indicates Category G1 (>= 90 mL/min/1.73 m2) [facility] 22:54:41* Test Item Value Reference Range Interpretation Comme nts LIPASE (test code = 2758540337) 144 U/L 0-220 Lab Interpretation (test cod e = 93809-3) Normal [facility] Hospital[facility] with [id number] 22:43:01* Test Item Value Reference Range Interpretation Comme nts WBC (test code = 6690-2) 7.59 4.30-11.10 RBC (test code = 789-8) 4.82 3.93-5.25 HGB (test code = 718-7) 13.1 g/dL 11.6-15.0 HCT (test code = 4544-3) 40.6 % 35.7-45.2 MCV (test code = 787-2) 84.2 fL 80.6-95.5 MCH (test code = 785-6) 27.2 pg 25.9-32.8 MCHC (test code = 786-4) 32.3 g/dL 31.6-35.1 RDW-SD (test code = 78364-2) 37.8 fL 39.0-49.9 L RDW-CV (test code = 788-0) 12.5 % 12.0-15.5 PLT (test code = 777-3) 302 166-358 MPV (test code = 52257-5) 11.0 fL 9.5-12.9 NRBC/100 WBC (test code = 6681093496) 0.0 0.0-10.0 NRBC x10^3 (test code = 8017397362) See_Comment [Automated messa ge] The system which generated this result transmitted reference range: 10*3/?L. The reference range was not used to interpret this result as normal/abnormal. GRAN MAT (NEUT) % (test code = 770-8) 54.7 % IMM GRAN % (test code = 6635320551) 0.40 % LYMPH % (test code = 736-9) 36.6 % MONO % (test code = 5905-5) 6.6 % EOS % (test code = 713-8) 1.2 % BASO % (test code = 706-2) 0.5 % GRAN MAT x10^3(ANC) (test code = 1445223086) 4.15 10*3/uL 1.88-7.09 IMM GRAN x10^3 (test code = 6441648991) 0.03 10*3/uL 0.00-0.06 LYMPH x10^3 (test code = 731-0) 2.78 10*3/uL 1.32-3.29 MONO x10^3 (test code = 742-7) 0.50 10*3/uL 0.33-0.92 EOS x10^3 (test code = 711-2) 0.09 10*3/uL 0.03-0.39 BASO x10^3 (test code = 704-7) 0.04 10*3/uL 0.01-0.07 Lab Interpretation (test code = 93371-1) [facility] [id number] 22:21:00* Test Item Value Reference Range Interpretation Comme nts POCT PREG (test code = 1605) Negative On board controls acceptable with C Line (test code = 3574) Yes POCT PREG LOT # (test code = 3575) [id number] POCT PREG TEST DATE ( test code = 3576) 09/04/2024 Lab Interpretation (test cod e = 90890-0) [facility] METABOLIC PANEL (63636)2022-03-05 21:09:07* Test Item Value Reference Range Interpretation Comme nts NA (test code = 8960796412) 137 mmol/L 135-145 K (test code = 5436581470) 3.9 mmol/L 3.5-5 CL (test code = 6485765268) 101 mmol/L 98-108 CO2 TOTAL (test code = 9775914345) 24 mmol/L 23-31 AGAP (test code = 4635947705) 2-16 BUN (test code = 3821339406) 8 mg/dL 7-23 GLUCOSE (test code = 7433994263) 130 mg/dL 70-110 H CREATININE (test code = 9880441820) 0.46 mg/dL 0.5-1.04 L TOTAL BILI (test code = 6663401796) 0.4 mg/dL 0.1-1.1 CALCIUM (test code = 1603486813) 9.5 mg/dL 8.6-10.6 T PROTEIN (test code = 9738544145) 7.9 g/dL 6.3-8.2 ALBUMIN (test code = 6194215096) 5.1 g/dL 3.5-5 H ALK PHOS (test code = 9254885872) 89 U/L 34-122 ALTv (test code = 1742-6) 20 U/L 5-35 AST(SGOT) (test code = 9557166550) 23 U/L 13-40 eGFR (test code = 3070528926) mL/min/1.73m2 DIETER (test code = DIETER) Association [...] imaging tests). Lab Interpretation (test code = 46579-1) [facility]09[facility]07* Test Item Value Reference Range Interpretation Comme nts LIPASE (test code = 1178183562) 70 U/L 0-220 Lab Interpretation (test cod e = 03768-6) [facility] [id number] 20:58:27* Test Item Value Reference Range Interpretation Comme nts WBC (test code = 6690-2) See_Comment H [Automated message] The system which generated this result transmitted reference range: 4.30 - 11.10 10*3/?L. The reference range was not used to interpret this result as normal/abnormal. RBC (test code = 789-8) See_Comment [Automated message] The system which generated this result transmitted reference range: 3.93 - 5.25 10*6/?L. The reference range was not used to interpret this result as normal/abnormal. HGB (test code = 718-7) 12.4 g/dL 11.6-15 HCT (test code = 4544-3) 37.9 % 35.7-45.2 MCV (test code = 787-2) 81.5 fL 80.6-95.5 MCH (test code = 785-6) 26.7 pg 25.9-32.8 MCHC (test code = 786-4) 32.7 g/dL 31.6-35.1 RDW-SD (test code = 16132-7) 38.4 fL 39-49.9 L RDW-CV (test code = 788-0) 13.1 % 12-15.5 PLT (test code = 777-3) See_Comment [Automated message] The system which generated this result transmitted reference range: 166 - 358 10*3/?L. The reference range was not used to interpret this result as normal/abnormal. MPV (test code = 60234-9) 10.3 fL 9.5-12.9 NRBC/100 WBC (test code = 7057475799) See_Comment [Automated message] The system which generated this result transmitted reference range: 0.0 - 10.0 /100 WBCs. The reference range was not used to interpret this result as normal/abnormal. NRBC x10^3 (test code = 3272545963) See_Comment [Automated message] The system which generated this result transmitted reference range: 10*3/?L. The reference range was not used to interpret this result as normal/abnormal. GRAN MAT (NEUT) % (test code = 770-8) 90.2 % IMM GRAN % (test code = 2370734603) 0.30 % LYMPH % (test code = 736-9) 6.9 % MONO % (test code = 5905-5) 2.3 % EOS % (test code = 713-8) 0.0 % BASO % (test code = 706-2) 0.3 % GRAN MAT x10^3(ANC) (test code = 6825509225) 11.66 10*3/uL 1.88-7.09 H IMM GRAN x10^3 (test code = 8418474976) 0.04 10*3/uL 0-0.06 LYMPH x10^3 (test code = 731-0) 0.89 10*3/uL 1.32-3.29 L MONO x10^3 (test code = 742-7) 0.30 10*3/uL 0.33-0.92 L EOS x10^3 (test code = 711-2) 0.03-0.39 L BASO x10^3 (test code = 704-7) 0.04 10*3/uL 0.01-0.07 Lab Interpretation (test code = 52103-4) [facility] [id number] 20:56:00* Test Item Value Reference Range Interpretation Comme nts POCT PREG (test code = 1605) Negative On board controls acceptable with C Line (test code = 3574) Present POCT PREG TEST DATE ( test code = 3576) 05-30-2023 POCT PREG LOT # (test code = 3575) [id number] Lab Interpretation (test cod e = 90022-6) [facility] Hospital[facility]ARS-[facility]OV-2(COVID19),[id number] 00:00:00* Test Item Value Reference Range Interpretation Comme nts SARS-CoV-2 INTERPRETATION (t est code = 70568-7) NEGATIVE SEE NOTE SOURCE (test code = 51297-2) NOT SPECIFIED COMP. METABOLIC PANEL (22505)2021-10-21 19:01:40* Test Item Value Reference Range Interpretation Comme nts NA (test code = 9624331832) 139 mmol/L 135-145 K (test code = 0245167988) 4.0 mmol/L 3.5-5.0 CL (test code = 4692104991) 103 mmol/L 98-108 CO2 TOTAL (test code = 2582665869) 26 mmol/L 23-31 AGAP (test code = 2189693887) 2-16 BUN (test code = 6224789594) 13 mg/dL 7-23 GLUCOSE (test code = 5572767015) 83 mg/dL 70-110 CREATININE (test code = 2682601375) 0.49 mg/dL 0.50-1.04 L TOTAL BILI (test code = 6208678702) 0.5 mg/dL 0.1-1.1 CALCIUM (test code = 8461974203) 9.0 mg/dL 8.6-10.6 T PROTEIN (test code = 4871164698) 7.8 g/dL 6.3-8.2 ALBUMIN (test code = 9713522710) 5.1 g/dL 3.5-5.0 H ALK PHOS (test code = 0106264889) 63 U/L 34-122 ALTv (test code = 1742-6) 14 U/L 5-35 AST(SGOT) (test code = 1871987944) 26 U/L 13-40 eGFR (test code = 0184407971) mL/min/1.73m2 DIETER (test code = DIETER) Association [...] imaging tests). Lab Interpretation (test code = 07256-6) [facility] HospitalACTIVATED PARTIAL THRMPLAS [id number] 18:39:58* Test Item Value Reference Range Interpretation Comme [facility] APTT Patient (test code = 3173-2) See_Comment [Automated message] The system which generated this result transmitted reference range: 23 - 38 Seconds. The reference range was not used to interpret this result as normal/abnormal. DIETER (test code = DIETER) The [facility] patient population mean normal value for aPTT is 30 seconds. Lab Interpretation (test code = 17745-4) [facility] HospitalPROTHROMBIN TIME / [id number] 18:37:41* Test Item Value Reference Range Interpretation Comme nts PROTIME PATIENT (test code = 5964-2) See_Comment [Automated [employer]] The system which generated this result transmitted reference range: 12.0 - 14.7 Seconds. The reference range was not used to interpret this result as normal/abnormal. INR (test code = 6301-6) Normal INR <1.1; Warfarin Therapeutic range 2.0 to 3.0 or 2.5 to 3.5, depending upon the indications. Lab Interpretation (test code = 00558-0) [facility] WITH [id number] 18:34:17* Test Item Value Reference Range Interpretation Comme [facility] WBC (test code = 6690-2) See_Comment [Automated [employer]] The system which generated this result transmitted reference range: 4.30 - 11.10 10*3/?L. The reference range was not used to interpret this result as normal/abnormal. RBC (test code = 789-8) See_Comment [Automated messa ge] The system which generated this result transmitted reference range: 3.93 - 5.25 10*6/?L. The reference range was not used to interpret this result as normal/abnormal. HGB (test code = 718-7) 12.5 g/dL 11.6-15.0 HCT (test code = 4544-3) 39.1 % 35.7-45.2 MCV (test code = 787-2) 82.1 fL 80.6-95.5 MCH (test code = 785-6) 26.3 pg 25.9-32.8 MCHC (test code = 786-4) 32.0 g/dL 31.6-35.1 RDW-SD (test code = 93748-5) 37.0 fL 39.0-49.9 L RDW-CV (test code = 788-0) 12.3 % 12.0-15.5 PLT (test code = 777-3) See_Comment [Automated messa ge] The system which generated this result transmitted reference range: 166 - 358 10*3/?L. The reference range was not used to interpret this result as normal/abnormal. MPV (test code = 93958-1) 10.6 fL 9.5-12.9 NRBC/100 WBC (test code = 7572792907) See_Comment [Automated [employer] ssage] The system which generated this result transmitted reference range: 0.0 - 10.0 /100 WBCs. The reference range was not used to interpret this result as normal/abnormal. NRBC x10^3 (test code = 8861334063) <0.01 See_Comment [Automated messa ge] The system which generated this result transmitted reference range: 10*3/?L. The reference range was not used to interpret this result as normal/abnormal. GRAN MAT (NEUT) % (test code = 770-8) 59.2 % IMM GRAN % (test code = 0637187160) 0.30 % LYMPH % (test code = 736-9) 33.6 % MONO % (test code = 5905-5) 5.0 % EOS % (test code = 713-8) 1.4 % BASO % (test code = 706-2) 0.5 % GRAN MAT x10^3(ANC) (test code = 0363223007) 3.91 10*3/uL 1.88-7.09 IMM GRAN x10^3 (test code = 5896628722) <0.03 0.00-0.06 LYMPH x10^3 (test code = 731-0) 2.22 10*3/uL 1.32-3.29 MONO x10^3 (test code = 742-7) 0.33 10*3/uL 0.33-0.92 EOS x10^3 (test code = 711-2) 0.09 10*3/uL 0.03-0.39 BASO x10^3 (test code = 704-7) 0.03 10*3/uL 0.01-0.07 Lab Interpretation (test code = 20108-9) [facility]22-[facility] 18:25:18* Test Item Value Reference Range Interpretation Comme nts LIPASE (test code = 7199724191) 110 U/L 0-220 Lab Interpretation (test cod e = 50377-5) [facility] [id number] 17:40:00* Test Item Value Reference Range Interpretation Comme nts POCT PREG (test code = 1605) NEGATIVE On board controls acceptable with C Line (test code = 3574) PRESENT POCT PREG LOT # (test code = 3575) [id number] POCT PREG TEST DATE ( test code = 3576) 2022-09-27 Lab Interpretation (test cod e = 14473-4) [facility] URINALYSIS W SPECIFIC [id number] 23:02:00* Test Item Value Reference Range Interpretation Comme nts POCT U SP GRAV (test code = 3255) 1.010 mg/dl 1.005-1.025 POCT PH U (test code = 3254) 7 mg/dl 5-8 POCT U LEUK EST (test code = 3263) trace Negative - Negative POCT U NIT (test code = 3262) negative Negative - Negative POCT U PROT (test code = 3259) trace Negative - Negative POCT U GLU (test code = 3256) negative Negative - Negative POCT U KETONE (test code = 3258) small + Negative - Negative POCT U UROBILI (test code = 3260) normal 0.2-1 POCT U BILI (test code = 3261) negative Negative - Negative POCT U BLD (test code = 3257) trace Negative - Negative POCT U COLOR (test code = 3266) yellow POCT U APPEAR (test code = 3267) cloudy DIETER (test code = DIETER) accurate developme nt and interpretation of all internal controls Lab Interpretation (test code = 75103-5) [facility] HospitalPO[facility] [id number] 23:02:00* Test Item Value Reference Range Interpretation Comme nts POCT PREG (test code = 1605) Negative On board controls acceptable with C Line (test code = 3574) Yes POCT PREG LOT # (test code = 3575) POCT PREG TEST DATE (test code = 3576) DIETER (test code = DIETER) accurate developme nt and interpretation of all internal controls Lab Interpretation (test code = 70518-5) [facility] Hospital[facility]ARS-[facility]OV-2(COVID19),[id number] 00:00:00* Test Item Value Reference Range Interpretation Comme nts SARS-CoV-2 INTERPRETATION (t est code = 72698-7) NEGATIVE SEE NOTE SOURCE (test code = 42949-3) NOT SPECIFIED HGB [id number] 05:19:00* Test Item Value Reference Range Interpretation Comme nts HEMOGLOBIN (test code = HGB) 9.8 g/dL 10.7-13.9 L HEMATOCRIT (test code = HCT) 30.5 % 32.1-42.1 L CBC W/AUTO [id number] 15:36:00* Test Item Value Reference Range Interpretation Comme nts WHITE BLOOD CELL (test code = WBC) [...] pg 27-35 N MEAN CELL HGB CONCETRATION ( test code = MCHC) 32.4 gm/dL 32.2-34.1 N RED CELL DISTRIBUTION WIDTH (test code = RDW) 15.2 % 12.4-16.5 N PLATELET COUNT (test code = PLT) 164 K/mm3 133-385 N IMMATURE PLATELET FRACTION ( test code = IPF) 0.0 % 0.0-10.8 N MEAN PLATELET VOLUME (test c ode = MPV) 12.3 fl 9.1-12.7 N NEUTROPHIL % (test code = NT%) 87.2 [...] = BA#) 0.0 K/mm3 RBC MORPHOLOGY REQUIRED (ramos t code = RBCM) NORMAL NORMAL PLATELET MORPHOLOGY REQUIRED (test code = PLTMR) NORMAL NORMAL AG HEPATITIS B [id number] 08:28:00* Test Item Value Reference Range Interpretation Comme nts AG HEPATITIS B SURFACE (test code = HBSAG) NONREACTIVE NONREACTIVE IS CONSENT FORM SIGNED FOR HIV TESTING? YAB HEPATITIS C [id number] 08:28:00* Test Item Value Reference Range Interpretation Comme nts AB HEPATITIS C (test code = HCVAB) NONREACTIVE NONREACTIVE SIGNAL TO CUTOFF (test code = CUTOFF) 0.02 <0.80 N IS CONSENT FORM SIGNED FOR HIV TESTING? YAB [id number] 08:28:00* Test Item Value Reference Range Interpretation Comme nts AB TREPONEMA (test code = TREPAB) NONREACTIVE NONREACTIVE IS CONSENT FORM SIGNED FOR HIV TESTING? YAB HIV 1 08:28:00* Test Item Value Reference Range Interpretation Comme nts AB HIV 1 2 (test code = IXF67PL) NONREACTIVE NONREACTIVE Done by [employer] 20linesaur 4th Gen HIV Ag/Ab Combo Screen IS CONSENT FORM SIGNED FOR HIV TESTING? YAG HEPATITIS B [id number] 07:44:00* Test Item Value Reference Range Interpretation Comme nts AG HEPATITIS B SURFACE (test code = HBSAG) NONREACTIVE NONREACTIVE IS CONSENT FORM SIGNED FOR HIV TESTING? YAB HEPATITIS C [id number] 07:44:00* Test Item Value Reference Range Interpretation Comme nts AB HEPATITIS C (test code = HCVAB) NONREACTIVE SIGNAL TO CUTOFF (test code = CUTOFF) <0.80 IS CONSENT FORM SIGNED FOR HIV TESTING? ALEXIAB [id number] 07:44:00* Test Item Value Reference Range Interpretation Comme nts AB TREPONEMA (test code = TREPAB) NONREACTIVE NONREACTIVE IS CONSENT FORM SIGNED FOR HIV TESTING? YAB HIV 1 07:44:00* Test Item Value Reference Range Interpretation Comme nts AB HIV 1 2 (test code = SNE61JP) NONREACTIVE IS CONSENT FORM SIGNED FOR HIV TESTING? YUR PROTEIN/CREATININE [id number] 06:44:00* Test Item Value Reference Range Interpretation Comme nts UR PROTEIN RANDOM (test code = PROTU) 36.0 mg/dL UR CREATININE RANDOM (test code = CREATU) 75.2 mg/dL PROTEIN/CREATININE RATIO (te st code = P/CRATIO) 470.0 mg/gcrea <200 H COMPREHENSIVE METABOLIC [id number] 06:15:00* Test Item Value Reference Range Interpretation Comme nts SODIUM (test code = NA) 137 mEq/L 135-145 N POTASSIUM (test code = K) 4.9 mEq/L 3.5-5.0 N CHLORIDE (test code = CL) 104 mEq/L 100-115 N CARBON DIOXIDE (test code = CO2) 22 mEq/L 22-31 N ANION GAP (test code = GAP) 16.20 10-20 N GLUCOSE (test code = GLU) 79 mg/dL 65-110 N BLOOD UREA NITROGEN (test co de = BUN) 6 mg/dL 7-18 L GLOMERULAR FILTRATION RATE ( test code = GFR) 198 ml/min >60 N CREATININE (test code = CREAT) 0.4 mg/dL 0.5-1.0 L TOTAL PROTEIN (test code = PROT) 6.3 gm/dL 6.3-8.2 N ALBUMIN (test code = ALB) 2.9 gm/dL 3.4-4.8 L CALCIUM (test code = CA) 8.8 mg/dL 8.4-10.2 N BILIRUBIN TOTAL (test code = BILT) 0.2 mg/dL 0.2-1.0 N SGOT/AST (test code = AST) 39 units/L 15-37 H SGPT/ALT (test code = ALT) 13 units/L 12-78 N ALKALINE PHOSPHATASE TOTAL ( test code = ALKP) 196 units/L 46-116 H URIC [id number] 06:15:00* Test Item Value Reference Range Interpretation Comme nts URIC ACID (test code = URIC) 5.1 mg/dL 2.6-6.0 N CBC W/AUTO [id number] 05:55:00* Test Item Value Reference Range Interpretation Comme nts WHITE BLOOD CELL (test code = WBC) [...] pg 27-35 N MEAN CELL HGB CONCETRATION ( test code = MCHC) 32.2 gm/dL 32.2-34.1 N RED CELL DISTRIBUTION WIDTH (test code = RDW) 14.9 % 12.4-16.5 N PLATELET COUNT (test code = PLT) 184 K/mm3 133-385 N IMMATURE PLATELET FRACTION ( test code = IPF) 0.0 % 0.0-10.8 N MEAN PLATELET VOLUME (test c ode = MPV) 12.9 fl 9.1-12.7 H NEUTROPHIL % (test code = NT%) 69.0 [...] = BA#) 0.0 K/mm3 RBC MORPHOLOGY REQUIRED (ramos t code = RBCM) NORMAL NORMAL PLATELET MORPHOLOGY REQUIRED (test code = PLTMR) NORMAL NORMAL CLOTTED;NOTIFIED DANNY FOR [id number] 16:16:00* Test Item Value Reference Range Interpretation Comme nts CREATININE (test code = CREAT) 0.5 mg/dL 0.5-1.0 N [id number] 16:16:00* Test Item Value Reference Range Interpretation Comme nts SGOT/AST (test code = AST) 21 units/L 15-37 N [id number] 16:16:00* Test Item Value Reference Range Interpretation Comme nts SGPT/ALT (test code = ALT) 14 units/L 12-78 N CBC W/AUTO [id number] 16:09:00* Test Item Value Reference Range Interpretation Comme nts WHITE BLOOD CELL (test code = WBC) [...] pg 27-35 N MEAN CELL HGB CONCETRATION ( test code = MCHC) 31.9 gm/dL 32.2-34.1 L RED CELL DISTRIBUTION WIDTH (test code = RDW) 15.2 % 12.4-16.5 N PLATELET COUNT (test code = PLT) 181 K/mm3 133-385 N IMMATURE PLATELET FRACTION ( test code = IPF) 0.0 % 0.0-10.8 N MEAN PLATELET VOLUME (test c ode = MPV) 12.6 fl 9.1-12.7 N NEUTROPHIL % (test code = NT%) 69.3 [...] = BA#) 0.0 K/mm3 RBC MORPHOLOGY REQUIRED (ramos t code = RBCM) NORMAL NORMAL PLATELET MORPHOLOGY REQUIRED (test code = PLTMR) NORMAL NORMAL SARS-COV 2 AntigenSARS-COV 2 Antigen Notes Date/Time Note Provider Source 2023-12-21 21:13:17 Images from the original note were not included. Pt given printed and verbal discharge instructions regarding generalized abdominal pain Prescriptions provided dicyclomine 20 mg tablet magnesium citrate solution ondansetron 4 mg disintegrating tablet polyethylene glycol 3350 17 gram powder Pt verbalized understanding of instructions, pt awake alert oriented, resp reg unlabored, skin w/d, color appropriate for race, moves all ext well,pt encouraged to follow up with pcp Advised to seek medical attention for new/prolonged/worsening of symptoms, No adverse reaction to meds given in ER noted upon discharge PIV d'cd, dressing to site, catheter in tact. Awake, alert oriented, resp reg unlabored, skin w/d, pt leaving amb with steady gait, in no apparent distress Tere Ramirez RN [facility] 2023-12-21 16:38:00 Patient states: "I've been having left abdominal pain associated with nausea since a week and a half now and it's getting worse." Andria Lucas RN 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 No fever. Onset for 2 weeks. Has IUD. Has had diarrhea and constipation. Associated with gas. Past Medical History/Immunizations: Past Medical History: Diagnosis Date Gastritis Tetanus received in last 5 years: Yes Childhood immunizations: Up-to-date Allergies: No Known Allergies Past Social History: Tobacco Use Never smoked or used smokeless tobacco. Past Surgical History: No past surgical history on file. Review of Systems: Review of Systems Constitutional: Negative for chills, fatigue and fever. HENT: Negative for sore throat. Eyes: Negative for pain. Respiratory: Negative for cough, chest tightness, shortness of breath and stridor. Breasts: Negative for pain. Cardiovascular: Negative for chest pain and palpitations. Gastrointestinal: Positive for abdominal pain, constipation and diarrhea. Negative for nausea and vomiting. Genitourinary: Negative for bladder incontinence and difficulty urinating. Musculoskeletal: Negative for back pain. Skin: Negative for color change. Neurological: Negative for dizziness, seizures, weakness, light-headedness and headaches. Physical Exam: ED Triage Vitals [12/21/23 1638] Weight 72.6 kg (160 lb) Actual or estimated Estimated by patient/family report Height 1.549 m (5' 1") BP 125/80 Pulse 86 Resp 15 Temp 37.4 ?C (99.3 ?F) Temp source Oral SpO2 98 % Measured on Room air Physical Exam Vitals and nursing note reviewed. Constitutional: General: She is not in acute distress. Appearance: She is well-developed. She is not diaphoretic. HENT: Head: Normocephalic and atraumatic. Right Ear: External ear normal. Left Ear: External ear normal. Nose: Nose normal. Eyes: General: No scleral icterus. Conjunctiva/sclera: Conjunctivae normal. Pupils: Pupils are equal, round, and reactive to light. Cardiovascular: Rate and Rhythm: Normal rate and regular rhythm. Heart sounds: Normal heart sounds. Pulmonary: Effort: Pulmonary effort is normal. Breath sounds: Normal breath sounds. Abdominal: General: Bowel sounds are normal. Palpations: Abdomen is soft. Tenderness: There is abdominal tenderness (LLQ). There is no guarding or rebound. Musculoskeletal: General: Normal range of motion. Cervical back: Normal range of motion and neck supple. Skin: General: Skin is warm and dry. Neurological: Mental Status: She is alert and oriented to person, place, and time. Cranial Nerves: No cranial nerve deficit. Deep Tendon Reflexes: Reflexes are normal and symmetric. Psychiatric: Behavior: Behavior normal. Thought Content: Thought content normal. Radiology: No orders to display Lab Results: Lab Results CBC WITH DIFF - Abnormal Result Value Ref Range WBC 7.59 4.30 - 11.10 10*3/?L RBC 4.82 3.93 - 5.25 10*6/?L HGB 13.1 11.6 - 15.0 g/dL HCT 40.6 35.7 - 45.2 % MCV 84.2 80.6 - 95.5 fL MCH 27.2 25.9 - 32.8 pg MCHC 32.3 31.6 - 35.1 g/dL RDW-SD 37.8 (*) 39.0 - 49.9 fL RDW-CV 12.5 12.0 - 15.5 % PLT 302 166 - 358 10*3/?L MPV 11.0 9.5 - 12.9 fL NRBC/100 WBC 0.0 0.0 - 10.0 /100 WBCs NRBC x10 3 <0.01 10*3/?L GRAN MAT (NEUT) % 54.7 % IMM GRAN % 0.40 % LYMPH % 36.6 % MONO % 6.6 % EOS % 1.2 % BASO % 0.5 % GRAN MAT x10 3 (ANC) 4.15 1.88 - 7.09 10*3/uL IMM GRAN x10 3 0.03 0.00 - 0.06 10*3/uL LYMPH x10 3 2.78 1.32 - 3.29 10*3/uL MONO x10 3 0.50 0.33 - 0.92 10*3/uL EOS x10 3 0.09 0.03 - 0.39 10*3/uL BASO x10 3 0.04 0.01 - 0.07 10*3/uL URINALYSIS - Abnormal APPEARANCE Clear Clear COLOR Yellow Yellow PH 7.0 4.8 - 8.0 SP GRAVITY 1.011 1.003 - 1.030 GLU U QUAL Normal Normal BLOOD Negative Negative KETONES Negative Negative PROTEIN Negative Negative UROBILIN Normal Normal BILIRUBIN Negative Negative NITRITE Negative Negative LEUK JANE 25/uL (*) Negative RBC/HPF 1 0 - 3 HPF WBC/HPF 1 0 - 5 HPF BACTERIA Few (*) Negative SQ EPITH 2 HPF LIPID PANEL (77018)(TOTAL CHOLESTEROL, TRIGLYCERIDES, HDL) - Abnormal CHOL 225 (*) 120 - 200 mg/dL HDL 45 (*) >50 mg/dL HDLC RATIO 5.0 (*) <=4.5 TRIG 298 (*) 30 - 170 mg/dL LDL CHOL 120 <=160 mg/dL VLDL 60 5 - 60 mg/dL LIPASE - Normal LIPASE 144 0 - 220 U/L POCT TEST - Normal POCT PREG Negative On board controls acceptable with C Line Yes POCT PREG LOT # [id number] POCT PREG TEST DATE 09/04/2024 COMP. METABOLIC PANEL (10728) NA 138 135 - 145 mmol/L K 3.9 3.5 - 5.0 mmol/L CL 102 98 - 108 mmol/L CO2 TOTAL 27 23 - 31 mmol/L AGAP 9 2 - 16 BUN 9 7 - 23 mg/dL GLUCOSE 90 70 - 110 mg/dL CREATININE 0.60 0.50 - 1.04 mg/dL TOTAL BILI 0.4 0.1 - 1.1 mg/dL CALCIUM 9.1 8.6 - 10.6 mg/dL T PROTEIN 8.1 6.3 - 8.2 g/dL ALBUMIN 4.8 3.5 - 5.0 g/dL ALK PHOS 75 34 - 122 U/L ALTv 19 5 - 35 U/L AST(SGOT) 24 13 - 40 U/L eGFR 125.6 mL/min/1.73m2 EKG: If EKG completed, see Procedure Note. Orders and Treatments: Orders Placed This Encounter Procedures CT ABDOMEN PELVIS W CONTRAST Comp. Metabolic Panel (73087) Cbc with Diff Lipase POCT Test Urinalysis Lipid Panel (75408)(Total Cholesterol, Triglycerides, HDL) Orders Placed This Encounter Medications ondansetron (ZOFRAN (PF)) injection 4 mg DISCONTD: pantoprazole (PROTONIX) 80 mg in NaCl 0.9% (NS) 20 mL syringe NaCl 0.9% (NS) bolus infusion 1,000 mL pantoprazole (PROTONIX) injection 80 mg First Provider Eval: ED Events Date/Time Event User Comments 12/21/231643 Medical Screening Begins DESHAWN QUIROZ -- 12/21/231643 First Provider Evaluation DESHAWN QUIROZ -- ED COURSE ED Course as of 12/21/232043 [facility] December 21, 20231910 The patient is a 20-year-old female who presents for left lower quadrant pain. She states she has had pain like this before and has seen a GI doctor. She has not had a bowel movement in some time she states. The patient was endorsed me by Dr. Quiroz. Hematological and chemistry studies are within range. On my exam she is tender left lower quadrant. She denies any symptoms. She does not have pain on my examination over the left adnexal area. CT is pending. She received morphine and Zofran. Will continue to monitor. [DN] ED Course User Index [DN] Mayra Magana MD Diagnosis/Impression as of 12/21/232043 Generalized abdominal pain Foreign body in digestive tract, initial encounter Constipation, unspecified constipation type Procedures: Procedures MDM: Medical Decision Making Patient was evaluated for the complaint of Abdominal Pain and Nausea Diagnoses considered but not limited to: Appendicitis Bowel Obstruction Diarrhea Diverticulitis (acute) Ectopic Ovarian Cyst Pancreatitis (acute) Peptic Ulcer Disease Pyelonephritis Renal Colic Urinary Tract Infection. Labs:some labs may be pending which may need to be addressed in the future. Abnormal Labs Reviewed CBC WITH DIFF - Abnormal; Notable for the following components: RDW-SD 37.8 (*) All other components within normal limits URINALYSIS - Abnormal; Notable for the following components: LEUK JANE 25/uL (*) BACTERIA Few (*) All other components within normal limits LIPID PANEL (01360)(TOTAL CHOLESTEROL, TRIGLYCERIDES, HDL) - Abnormal; Notable for the following components: CHOL 225 (*) HDL 45 (*) HDLC RATIO 5.0 (*) TRIG 298 (*) All other components within normal limits Imaging:Some imaging may be pending which may need to be addressed in the future. Reassessment:stable Plan & Summary:Andrea Wheeler is a 28 year old female with LLQ abdominal pain. Imaging pending. Patient signed out to Dr. Magana pending imaging and labs. History, physical exam findings, results of visit, diagnosis, medication regimens and plan of future care have been considered. Additional MDM may be found in the ED course. Vital signs were rechecked before final disposition and determined to be stable. Problems Addressed: Generalized abdominal pain: acute illness or injury Amount and/or Complexity of Data Reviewed Labs: ordered. Radiology: ordered. Risk Prescription drug management. Flowsheet Documentation: Scoring Tools: No data recorded Disposition/Condition: ED Disposition None Discharge Medications: Patient's Medications START taking these medications No medications on file CONTINUE taking these medications which have NOT CHANGED BUPROPION XL 150 MG 24 HR TABLET bupropion HCl XL 150 mg 24 hr tablet, extended release TAKE 1 TABLET BY MOUTH EVERY DAY IN THE MORNING DICYCLOMINE 20 MG TABLET Take 1 tablet by mouth 4 (four) times daily. DOCUSATE SODIUM 250 MG CAPSULE Take 1 capsule by mouth once daily as needed for Constipation. ONDANSETRON 4 MG DISINTEGRATING TABLET Take 1 tablet by mouth every 4 (four) hours as needed for Nausea and Vomiting (N/V). ONDANSETRON 4 MG DISINTEGRATING TABLET Take 1 tablet by mouth every 4 (four) hours as needed for Nausea and Vomiting (N/V). ONDANSETRON 4 MG DISINTEGRATING TABLET Take 1 tablet by mouth every 8 (eight) hours as needed for Nausea and Vomiting (N/V). START taking Modified Medications as Prescribed No medications on file STOP taking these medications No medications on file Follow-up: Electronically signed by: Deshawn Quiroz DO 12/21/231824 [facility], [facility]–1983 2023-12-21 16:29:00 The patient was endorsed to me by Dr. Quiroz pending CT. CT of the pelvis does not demonstrate any acute process. However, the patient may have a foreign body. The patient denied any piercings or any clothing that would have this type of shape. She was instructed to check her stool for passage of the foreign body. Hematological and chemistry studies are within range. She does state that occasionally she suffers from constipation. She does follow with a GI specialist. The patient will be discharged to follow-up with MiraLAX, Bentyl, Zofran, and mag citrate. She was discharged with a referral to GI. She can return for any questions or concerns. Mayra Magana MD 12/21/232058 [facility], [facility] 2018-11-25 08:18:00 [facility] ([facility]) OB Postpart Progr Note REPORT#:[id number] REPORT STATUS: Signed DATE:11/25/18 TIME: 817 PATIENT: ANDREA GONZALEZ UNIT #: [id number] ROOM/BED: : 95 AGE: 23 SEX: F ATTEND: Lalo Salgado MD ADM AUTHOR: Lalo Salgado MD * ALL edits or amendments must be made on the electronic/computer document * Subjective Subjective Status/Day: post (d3) Patient reports: Patient reports: Yes no complaints, Yes pain management effective, Yes tolerating po well Objective Nursing Documentation Review Nursing Data: The data set between the solid lines has been imported from nursing documentation. Any exceptions have been noted below under Provider comments. Feeding preference: Provider comments on imported nursing data: [] General VS: Vital Signs: Date Time Temp Pulse Resp B/P B/P Pulse O2 O2 Flow FiO2 Mean Ox Delivery Rate 11/24 2335 98.6 112 20 128/77 94.3 11/24 1710 99.2 114 20 128/89 11/24 0825 98.5 106 20 119/79 Physical Exam Neuro: Exam: alert, oriented x3 Abdomen: soft, no abnormal tenderness Uterus: firm, non-tender Fundus: firm, below the umbilicus Diagnosis, Assessment Plan Diagnosis, Assessment Plan Assessment: nml progress Plan: routine care, discharge today at 0818 RPT #:[id number] END OF REPORT [facility] 2018-11-24 10:52:00 [facility] ([facility]) OB Postpart Progr Note REPORT#:[id number] REPORT STATUS: Signed DATE:11/24/18 TIME: 1052 PATIENT: ANDREA GONZALEZ UNIT #: [id number] ROOM/BED: : 95 AGE: 23 SEX: F ATTEND: Lalo Salgado MD ADM AUTHOR: Lalo Salgado MD * ALL edits or amendments must be made on the electronic/computer document * Subjective Subjective Status/Day: post (d2) Patient reports: Patient reports: Yes no complaints, Yes pain management effective, Yes tolerating po well Objective Nursing Documentation Review Nursing Data: The data set between the solid lines has been imported from nursing documentation. Any exceptions have been noted below under Provider comments. Feeding preference: Provider comments on imported nursing data: Physical Exam Neuro: Exam: alert, oriented x3 Abdomen: soft, no abnormal tenderness Uterus: firm, non-tender Fundus: firm, below the umbilicus Diagnosis, Assessment Plan Diagnosis, Assessment Plan Assessment: nml progress Plan: routine care, discharge today at 1053 RPT #:[id number] END OF REPORT [facility] 2018-11-23 08:40:00 [facility] ([facility]) OB Postpart Progr Note REPORT#:[id number] REPORT STATUS: Signed DATE:11/23/18 TIME: 0840 PATIENT: ANDREA GONZALEZ UNIT #: [id number] ROOM/BED: : 95 AGE: 23 SEX: F ATTEND: Lalo Salgado MD ADM AUTHOR: Lalo Salgado MD * ALL edits or amendments must be made on the electronic/computer document * Subjective Subjective Status/Day: post (d1) Patient reports: Patient reports: Yes no complaints, Yes pain management effective, Yes tolerating po well Objective Nursing Documentation Review Nursing Data: The data set between the solid lines has been imported from nursing documentation. Any exceptions have been noted below under Provider comments. Feeding preference: Provider comments on imported nursing data: [] General VS: Vital Signs: Date Time Temp Pulse Resp B/P B/P Pulse O2 O2 Flow FiO2 Mean Ox Delivery Rate 11/23 0020 99.8 114 18 134/95 11/23 2023 98.5 110 125/79 11/22 1946 110.0 11/22 1946 122 138/91 11/22 193 103.0 11/22 193 118 137/85 11/22 191 100.0 11/22 1916 122 126/84 11/22 190 96.0 11/22 190 116 127/76 11/22 184 105.0 11/22 184 126 138/83 11/22 1832 101.0 11/22 183 122 135/76 11/22 181 99.0 11/22 1816 99.3 118 134/79 11/22 1802 100.0 11/22 1802 130 143/82 11/22 1748 83.0 11/22 1748 122 123/59 11/22 1732 113.0 11/22 1732 121 143/95 11/22 1647 113.0 11/22 1647 [...] (Auto) (14.3 - 34.3 %) 7.7 L [place] % (Auto) (5.1 - 10.4 %) 4.5 L Eos % (Auto) (0.1 - 3.0 %) 0.1 Baso % (Auto) (0.1 - 1.0 %) 0.2 Neut # (Auto) (K/mm3) 13.3 Lymph # (Auto) (K/mm3) 1.2 [place] # (Auto) (K/mm3) 0.7 Eos # (Auto) (K/mm3) 0.01 Baso # (Auto) (K/mm3) 0.0 Immature Plt Fraction (0.0 - 10.8 %) 0.0 Diagnosis, Assessment Plan Diagnosis, Assessment Plan Assessment: nml progress Plan: routine care, discharge tomorrow at 0840 RPT #:[id number] END OF REPORT [facility] 2018-11-22 22:02:00 [facility] ([facility]) OB Delivery Note REPORT#:[id number] REPORT STATUS: Signed DATE:11/22/18 TIME: 2201 PATIENT: ANDREA GONZALEZ UNIT #: [id number] ROOM/BED: : 95 AGE: 23 SEX: F ATTEND: Lalo Salgado MD ADM AUTHOR: Lalo Salgado MD * ALL edits or amendments must be made on the electronic/computer document * OB Delivery Pre-delivery [place] evaluation at delivery: NRP certified personnel Admission EGA (wks/days): 37 weeks (+3) Baby [...] neg for sponges Mother's condition: mother stable 's condition: infant stable in room Lacerations: Perineal laceration(s): 2nd Degree w/vag muscles High vaginal laceration: no at 2206 RPT #:[id number] END OF REPORT [facility] 2018-11-22 07:54:00 [facility] ([facility]) OB Admission / H P REPORT#:[id number] REPORT STATUS: Signed DATE:11/22/18 TIME: 753 PATIENT: ANDREA GONZALEZ UNIT #: [id number] ROOM/BED: : 95 AGE: 23 SEX: F ATTEND: Lalo Salgado MD ADM AUTHOR: Jazmine Fuller MD * ALL edits or amendments must be made on the electronic/computer document * OB Admission H P Hx Chief complaint: suspected ruptured memb HPI: presented to [facility] following SROM at approximately 0200. +nitrazine. rare contractions. normal movement history: : 1 Current : Admission EGA (wks/days): 37 weeks (+3) Labs: Blood type: O Rh: positive Rubella: non-immune Hepatitis B: negative HIV: negative RPR: non-reactive STD: negative GBS: negative Genetic testing: chromosomal disorder (quad neg) Past medical history: denies PMH Past surgical history: denies PSH Social history: , no alcohol use, no tobacco use, no drug use Medications: Home Medications: Medication Dose/Rte/Freq Days Qty Entered Last Max Daily Dose Reviewed PNV/FE FUM/FA 1 TAB PO DAILY 11/20/18 11/22/18 ( MULTIVITAMIN) 171 0343 Strength: 1 TAB TAB FERROUS SULFATE 325 MG PO DAILY 11/20/18 11/22/18 (FEOSOL) 1715 0343 Strength: 325 MG TAB Current Hospital Medications: Electrolytic, Caloric, And Guerline Sig/Guilherme Start time Last Medication Dose Route Stop Time Status Admin Dextrose/Lactated 1,000 ML ASDIR 11/22 0400 AC Ringer's IV 01/21 0359 (DEXTROSE 5% IN LACTATED RINGERS 1000 ML) Lactated Ringer's 2,000 ML ASDIR PRN 11/22 0400 AC (LACTATED RINGERS) IV Lactated Ringer's 1,000 ML ONCE 11/22 0351 AC (LACTATED RINGERS) IV 11/23 0350 Oxytocics Sig/Guilherme Start time Last Medication Dose Route Stop Time Status Admin Oxytocin 500 ML ASDIR PRN 11/22 0400 AC (OXYTOCIN 30 UNITS/ IV 12/06 0359 500 ML NORMAL SALINE) Oxytocin 500 ML ASDIR PRN 11/22 0400 AC (OXYTOCIN 30 UNITS/ IV 500 ML NORMAL SALINE) Other Sig/Guilherme Start time Last Medication Dose Route Stop Time Status Admin Pharmacy Profile Note 0 .STK-MED ONE 11/22 0512 DC (EPIDURAL TRAY) .ROUTE Allergies Coded Allergies: No Known Allergies (11/22/18) Objective General VS: Last Documented: Result Date Time B/P Mean 97.0 11/22 0754 B/P 127/79 11/22 075 Pulse 83 11/22 075 Temp 98.6 11/22 0700 Resp 17 11/22 0334 Vital Signs: Date Time Temp Pulse Resp B/P B/P Pulse O2 O2 Flow FiO2 Mean Ox Delivery Rate 11/22 075 [...] Pulse Resp B/P B/P Mean Pulse Ox FiO2 11/22 98.2-98.6 83-94 17 127-143/79-99 97.0-118.0 Physical Exam Neuro: Exam: alert, oriented x3, [...] % (Auto) (14.3 - 34.3 %) 23.4 [place] % (Auto) (5.1 - 10.4 %) 5.5 Eos % (Auto) (0.1 - 3.0 %) 1.0 Baso % (Auto) (0.1 - 1.0 %) 0.3 Neut # (Auto) (K/mm3) 6.2 Lymph # (Auto) (K/mm3) 2.1 [place] # (Auto) (K/mm3) 0.5 Eos # (Auto) [...] yo G1 at 37+1 admitted with SROM, preeclampsia without severe features pitocin augmentation GBS neg status reassuring epidural PRN Consultation(s): Consultation performed: anesthesia at 0830 RPT #:[id number] END OF REPORT [facility]
[2024-05-15 05:15] LABS: Albumin 4.3 g/dL (3.4-5.0); Albumin/Globulin Ratio 1.3 (1.1-1.8); Anion Gap 5.4 mEq/L (5.0-15.0); Bilirubin Total 0.3 mg/dL (0.2-1.0); Globulin 3.3 g/dL (2.3-3.5); Potassium 3.4 mEq/L (3.5-5.1); Protein, Total 7.6 g/dL (6.4-8.2); Specific Gravity 1.013 (1.005-1.030); Sqamous Epithelial <5 /HPF (None Seen); Urine Bacteria None Seen /HPF (<20); Urine Bilirubin NEGATIVE (Negative); Urine Blood Negative (Negative); Urine Clarity Extremely Turbid (Clear); Urine Color Colorless (Yellow); Urine Culture Reflex Order NOT NEEDED; Urine Glucose NEGATIVE (Negative); Urine Ketones NEGATIVE (Negative); Urine Microscopic Reflex YN ORDER UMIC; Urine Mucus Slight /HPF (None Seen); Urine Nitrite NEGATIVE (Negative); Urine Protein NEGATIVE (Negative); Urine RBC None Seen /HPF (None Seen); Urine Urobilinogen Normal (Normal); Urine WBC <5 /HPF (<5); Urine pH 7.5 (5.0-7.0)
[2024-05-15 05:16] LABS: Specific Gravity 1.013 (1.005-1.030)
--- NOTE | 2024-05-15 05:16 | RAD REPORT ---
EXAM: CT Abdomen and Pelvis Without Intravenous Contrast CLINICAL HISTORY: The patient is 28 years old and is Female; abd pain TECHNIQUE: Axial computed tomography images of the abdomen/ and pelvis without intravenous contrast . Sagittal and coronal reformatted images were created and reviewed. This CT exam was performed using one or more of the following dose reduction techniques: automated exposure control, adjustmen t of the mA and/or kV according to patient size, and/or use of iterative reconstruction technique. COMPARISON: CT abdomen and pelvis with contrast March 03, 2020 FINDINGS: Lung bases: Unremarkable. No mass. No consolidation. ABDOMEN: Liver: Unremarkable. Gallbladder and bile ducts: Large 3 cm gallstone in the gallbladder, similar to prior. Pancreas: Unremarkable. No ductal dilation. Spleen: Unremarkable. No splenomegaly. Adrenals: Unremarkable. No mass. Kidneys and ureters: Unremarkable. No obstructing stones. No hydronephrosis. Stomach and bowel: Unremarkable. No obstruction. No mucosal thickening. PELVIS: Appendix: The appendix is normal. Bladder: Unremarkable. Reproductive: Corpus luteum cyst in the right ovary. IUD in the uterus. ABDOMEN and PELVIS: Intraperitoneal space: Unremarkable. No free air. No significant fluid collection. Bones/joints: No acute fracture. No dislocation. Soft tissues: Unremarkable. Vasculature: Unremarkable. No abdominal aortic aneurysm. Lymph nodes: Unremarkable. No enlarged lymph nodes. IMPRESSION: 1. Large 3 cm gallstone in the gallbladder, similar to prior. 2. Corpus luteum cyst in the right ovary. 3. IUD in the uterus. 4. The appendix is normal. Electronically signed by: Wilian Pablo MD 05/15/2024 04:56 AM CDT 8 Due to temporary technical issues with the PACS/[employer] reporting system, reports are being luis e d by the in-house radiologist without review as a courtesy to ensure prompt reporting the interpreting radiologist is fully responsible for the content of the report. Transcribed Date/Time: 05/15/2024 5:16 AM
[2024-05-15 05:18] LABS: Absolute Eosinophils 0.1 K/uL (0-0.5); Absolute Monocytes 0.3 K/uL (0.1-1.3); Absolute Neutrophil 3.4 K/uL (1.8-8.0); Basophils % 0.6 % (0-1.3); Eosinophils % 1.4 % (0-4.4); Hematocrit 39.4 % (36.0-45.0); Hemoglobin 12.8 g/dL (12.0-15.0); Lymphocytes % 43.9 % (15.3-44.8); MCH 26.8 pg (27.0-35.0); MCHC 32.4 g/dL (32.0-36.0); MCV 82.8 fL (80-100); MPV 9.5 fL (7.6-11.3); Neutrophils % 49.1 % (41.7-73.7); Platelets 258 thou/uL (152-406); RBC Red Blood Cell Count 4.76 M/uL (3.86-4.86); Red Cell Distribution Width 13.8 % (12.1-15.2)
--- NOTE | 2024-05-15 06:29 | ER ---
Nurse's Notes [facility] Name: Cynthia Sears Age: 28 yrs Sex: Female : 1995 Arrival Date: 05/15/2024 Time: 01:06 Bed 8 Private MD: Wm Schulz Diagnosis: Other cholelithiasis without obstruction;Right upper quadrant abdominal pain, cholelithiasis without cholecystitis Presentation: 05/15 01:45 Chief complaint: Patient states: c/o RUQ pain radiating to R flank and LUQ x2-3 days. al5 patient also has been experiencing nausea and constipation. Coronavirus screen: At this time, the client does not indicate any symptoms associated with coronavirus-19. Ebola Screen: No symptoms or risks identified at this time. Initial Sepsis Screen: Does the patient meet any 2 criteria? HR > 90 bpm. No. Patient's initial sepsis screen is negative. Does the patient have a suspected source of infection? No. Patient's initial sepsis screen is negative. Risk Assessment: Do you want to hurt yourself or someone else? Patient reports no desire to harm self or others. Onset of symptoms was May 13, 2024. 01:45 Method Of Arrival: Ambulatory al5 01:45 Acuity: NIDHI 3 al5 Triage Assessment: 01:47 General: Appears in no apparent distress. Behavior is calm, cooperative. General: last al5 menstrual cycle was about 2-3 weeks ago. Pain: Complains of pain in right upper quadrant Pain radiates to right mid back and left upper quadrant Pain currently is 7 out of 10 on a pain scale. Aggravated by foods normally, 4 months ago changed to a gluten free diet and has not had a problem until now. EENT: No signs and/or symptoms were reported regarding the EENT system. Neuro: Level of Consciousness is awake, alert, obeys commands, Oriented to person, place, time, situation. Cardiovascular: Capillary refill < 3 seconds Patient's skin is warm and dry. Respiratory: Airway is patent Respiratory effort is even, unlabored, Respiratory pattern is regular, symmetrical. GI: Abdomen is flat, non-distended, Reports upper abdominal pain, constipation, nausea. : No signs and/or symptoms were reported regarding the genitourinary system. Derm: Skin is intact, Skin is pink, warm \T\ dry. normal. Musculoskeletal: No signs and/or symptoms reported regarding the musculoskeletal system. 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 - Infectious Disease History:: Denies. - Social history:: Smoking status: Patient denies any tobacco usage or history of. - Family history:: not pertinent. Screenin:50 [facility] ED Fall Risk Assessment (Adult) History of falling in the last 3 months, al5 including since admission No falls in past 3 months (0 pts) Confusion or Disorientation No (0 pts) Intoxicated or Sedated No (0 pts) Impaired Gait No (0 pts) Mobility Assist Device Used No (0 pt) Altered Elimination No (0 pt) Score/Fall Risk Level 0 - 2 = Low Risk Oriented to surroundings, Maintained a safe environment, Hourly rounding (assess needs \T\ fall precautionary measures) done. Abuse screen: Denies threats or abuse. Denies injuries from another. Nutritional screening: No deficits noted. Tuberculosis screening: No symptoms or risk factors identified. Assessment: 01:49 Reassessment: see triage assessment. al5 01:50 GI: Bowel sounds present X 4 quads. Abd is soft X 4 quads Abdomen is tender to al5 palpation in right upper quadrant and left upper quadrant. Vital Signs: 01:45 BP 132 / 79; Pulse 92; Resp 16; Temp 99; Pulse Ox 97% on R/A; Weight 63.05 kg; Height 5 al5 ft. 1 in. ; Pain 7/10; 03:10 BP 117 / 81; Pulse 75; Resp 16; Pulse Ox 99% ; Pain 3/10; dd2 04:35 BP 121 / 80; Pulse 77; Resp 16; Temp 98.7; Pulse Ox 100% ; dd2 05:50 BP 103 / 64; Pulse 72; Resp 15; Pulse Ox 98% ; dd2 06:45 BP 107 / 67; Pulse 76; Resp 16; Temp 98.4; Pulse Ox 99% ; Pain 1/10; dd2 01:45 Body Mass Index 26.26 (63.05 kg, 154.94 cm) al5 01:45 Pain Scale: Adult al5 03:10 Pain Scale: Adult dd2 06:45 Pain Scale: Adult dd2 Brandan Coma Score: 05:27 Eye Response: spontaneous(4). Motor Response: obeys commands(6). Verbal Response: sp4 oriented(5). Total: 15. ED Course: 01:16 Patient arrived in ED. gm2 01:17 Wm Schulz DO is Private Physician. gm2 01:34 Jett Frost MD is Attending Physician. sp4 01:35 Desire Recio RN is Primary Nurse. al5 01:47 Triage completed. al5 01:49 Arm band placed on right wrist. Patient placed in the treatment room, on a stretcher. al5 01:50 Patient has correct armband on for positive identification. Bed in low position. Call al5 light in reach. Side rails up X2. Provided Education on: plan of care. 01:50 No provider procedures requiring assistance completed. Inserted saline lock: 20 gauge al5 in right antecubital area, using aseptic technique. 01:55 Client placed on continuous cardiac and pulse oximetry monitoring. NIBP monitoring dd2 applied. Door closed. Noise minimized. Lights dimmed. Warm blanket given. Pillow given. Verbal reassurance given. 01:55 Initial lab(s) drawn, by ED staff, sent to lab. Urine collected: clean catch specimen, ty clear. 04:56 CT Abd/Pelvis - IV Contrast Only In Process Unspecified. EDMS 05:08 US Abdomen Limited In Process Unspecified. EDMS 06:27 Zoran Agarwal MD is Referral Physician. sp4 06:46 IV discontinued, intact, bleeding controlled, No redness/swelling at site. Pressure dd2 dressing applied. Administered Medications: 02:14 Drug: morphine IVP or IV 4 mg IVP once over 4 mins Route: IVP; Infused Over: 4 mins; dd2 Site: right antecubital; 02:29 Follow up: Response: No adverse reaction dd2 02:14 Drug: Ketorolac IVP 30 mg IVP once Route: IVP; Site: right antecubital; dd2 02:29 Follow up: Response: No adverse reaction dd2 02:14 Drug: NS 0.9% IV 1000 ml IV at 125 ml/hr continuous Route: IV; Rate: 125 ml/hr; Site: dd2 right antecubital; 02:29 Follow up: Response: No adverse reaction dd2 06:49 Follow up: Response: No adverse reaction; IV Status: Completed infusion; IV Intake: dd2 500ml 02:15 Drug: Ondansetron IVP 4 mg IVP once; over 2 minutes Route: IVP; Site: right antecubital;dd2 02:29 Follow up: Response: No adverse reaction dd2 02:15 Drug: NS 0.9% IV 1000 ml IV at 1 bolus Per protocol; to be given as a bolus over 60 dd2 minutes Route: IV; Rate: 1 bolus; Site: right antecubital; 02:29 Follow up: Response: No adverse reaction dd2 03:15 Follow up: Response: No adverse reaction; IV Status: Completed infusion; IV Intake: dd2 1000ml 06:33 Not Given (Physician Discretion): [id number] mg PO once sp4 06:33 Not Given (Physician Discretion): [id number] mg PO once sp4 Medication: 01:50 VIS not applicable for this client. al5 Intake: 03:15 IV: 1000ml; Total: 1000ml. dd2 06:49 IV: 500ml; Total: 1500ml. dd2 Outcome: 06:28 Discharge ordered by . sp4 06:46 Discharged to home ambulatory, dd2 06:46 Condition: stable 06:46 Discharge instructions given to patient, Instructed on discharge instructions, follow up and referral plans. medication usage, Demonstrated understanding of instructions, follow-up care, medications, 06:46 Prescriptions given X 3, 06:48 Patient left the ED. dd2 Signatures: Dispatcher [facility] EDNY Mel Boewr RN RN 1 Jett Frost MD MD sp4 Deisy Fletcher gm2 Tee Ortiz Amanda, RN RN al5 LUCY PACHECO RN RN dd2 Corrections: (The following items were deleted from the chart) 01:47 01:47 Allergies: Aspirin; al5 al5
--- NOTE | 2024-05-15 06:29 | EDPHYS ---
Physician Documentation [facility] Name: Cynthia Sears Age: 28 yrs Sex: Female : 1995 Arrival Date: 05/15/2024 Time: 01:06 Bed 8 Private MD: [facility] ED Physician Jett Frost HPI: 05/15 01:34 This 28 yrs old Female presents to ER via Unassigned with complaints of sp4 Abdominal Pain, Back Pain. 05:27 28-year-old female presents with acute onset right-sided abdominal pain.. 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 - Infectious Disease History:: Denies. - Social history:: Smoking status: Patient denies any tobacco usage or history of. - Family history:: not pertinent. ROS: 05:27 Constitutional: Negative for fever, chills, and weight loss, positive for right-sided sp4 abdominal pain and vomiting 05:27 All other systems are negative, Exam: 05:27 Constitutional: This is a well developed, well nourished patient who is awake, alert, sp4 and in no acute distress. Head/Face: Normocephalic, atraumatic. Eyes: Pupils equal round and reactive to light, extra-ocular motions intact. Lids and lashes normal. Conjunctiva and sclera are not injected. Cornea within normal limits. Periorbital areas with no swelling, redness, or edema. ENT: Nares patent. No nasal discharge, no septal abnormalities noted. Tympanic membranes are normal and external auditory canals are clear. Oropharynx with no redness, swelling, or masses, exudates, or evidence of obstruction, uvula midline. Mucous membranes moist. Neck: Trachea midline, no thyromegaly or masses palpated, and no cervical lymphadenopathy. Supple, full range of motion without nuchal rigidity, or vertebral point tenderness. Chest/axilla: Normal chest wall appearance and motion. Nontender with no deformity. No lesions are appreciated. Cardiovascular: Regular rate and rhythm with a normal S1 and S2. No gallops, murmurs, or rubs. Normal PMI, no JVD. No pulse deficits. Respiratory: Lungs have equal breath sounds bilaterally, clear to auscultation and percussion. No rales, rhonchi or wheezes noted. No increased work of breathing, no retractions or nasal flaring. Abdomen/GI: Soft, with normal bowel sounds. No distension or tympany. No guarding or rebound. Positive for right sided abdominal tenderness Back: No spinal tenderness. No costovertebral tenderness. Skin: Warm, dry with normal turgor. Normal color with no rashes, no lesions, and no evidence of cellulitis. MS/ Extremity: Pulses equal, no cyanosis. Neurovascular intact. Full, normal range of motion. Neuro: Awake and alert, GCS 15, oriented to person, place, time, and situation. Cranial nerves II-XII grossly intact. Motor strength 5/5 in all extremities. Sensory grossly intact. Psych: Awake, alert, with orientation to person, place and time. Behavior, mood, and affect are within normal limits Vital Signs: 01:45 BP 132 / 79; Pulse 92; Resp 16; Temp 99; Pulse Ox 97% on R/A; Weight 63.05 kg; Height 5 al5 ft. 1 in. ; Pain 7/10; 03:10 BP 117 / 81; Pulse 75; Resp 16; Pulse Ox 99% ; Pain 3/10; dd2 04:35 BP 121 / 80; Pulse 77; Resp 16; Temp 98.7; Pulse Ox 100% ; dd2 05:50 BP 103 / 64; Pulse 72; Resp 15; Pulse Ox 98% ; dd2 06:45 BP 107 / 67; Pulse 76; Resp 16; Temp 98.4; Pulse Ox 99% ; Pain 1/10; dd2 01:45 Body Mass Index 26.26 (63.05 kg, 154.94 cm) al5 01:45 Pain Scale: Adult al5 03:10 Pain Scale: Adult dd2 06:45 Pain Scale: Adult dd2 [place] Coma Score: 05:27 Eye Response: spontaneous(4). Motor Response: obeys commands(6). Verbal Response: sp4 oriented(5). Total: 15. MDM: 01:34 Medical Screening Exam initiated sp4 05:27 ED course: COMPARISON: CT abdomen and pelvis with contrast March 03, 2020 FINDINGS: sp4 Lung bases: Unremarkable. No mass. No consolidation. ABDOMEN: Liver: Unremarkable. Gallbladder and bile ducts: Large 3 cm gallstone in the gallbladder, similar to prior. Pancreas: Unremarkable. No ductal dilation. Spleen: Unremarkable. No splenomegaly. Adrenals: Unremarkable. No mass. Kidneys and ureters: Unremarkable. No obstructing stones. No hydronephrosis. Stomach and bowel: Unremarkable. No obstruction. No mucosal thickening. PELVIS: Appendix: The appendix is normal. Bladder: Unremarkable. Reproductive: Corpus luteum cyst in the right ovary. IUD in the uterus. ABDOMEN and PELVIS: Intraperitoneal space: Unremarkable. No free air. No significant fluid collection. Bones/joints: No acute fracture. No dislocation. Soft tissues: Unremarkable. Vasculature: Unremarkable. No abdominal aortic aneurysm. Lymph nodes: Unremarkable. No enlarged lymph nodes. IMPRESSION: 1. Large 3 cm gallstone in the gallbladder, similar to prior. 2. Corpus luteum cyst in the right ovary. 3. IUD in the uterus. 4. The appendix is normal. . 05:29 Differential diagnosis: arthritis, Cholelithiasis Fatigue Fracture. Data reviewed: sp4 vital signs, nurses notes, lab test result(s), radiologic studies, CT scan, ultrasound. Consideration of Admission/Observation Escalation of care including admission/observation considered. 06:21 ED course: EXAM: US Abdomen Limited, Gallbladder CLINICAL HISTORY: The patient is 28 sp4 years old and is Female; Abdomen pain, TECHNIQUE: Real-time ultrasound of the right upper quadrant with image documentation. COMPARISON: CTAbdomen pelvis 05/15/2024, 03:19:40 AM. FINDINGS: Gallbladder: 2.6 cm stone in the gallbladder. Gallbladder wall thickness 4.6 mm. No pericholecystic fluid. Negative sonographic Quijano sign. Common bile duct: Common bile duct 4.1 mm in diameter. No stones. No dilation. Pancreas: Unremarkable as visualized. IMPRESSION: Cholelithiasis with mild wall thickening, suggestive of cholecystitis. Clinical correlation suggested. 05/15 01:34 Order name: CBC with Diff; Complete Time: 05:30 sp4 05/15 01:34 Order name: CMP sp4 05/15 01:34 Order name: Lipase sp4 05/15 01:34 Order name: Test, Urine; Complete Time: 05:30 sp4 05/15 01:34 Order name: Urinalysis w/ reflexes; Complete Time: 05:30 sp4 05/15 01:34 Order name: CT Abd/Pelvis - IV Contrast Only; Complete Time: 05:30 sp4 05/15 04:09 Order name: US Abdomen Limited sp4 05/15 01:34 Order name: IV Saline Lock; Complete Time: 01:51 sp4 05/15 01:34 Order name: Labs collected and sent; Complete Time: 01:51 sp4 05/15 01:59 Order name: NPO; Complete Time: 02:15 sp4 Administered Medications: 02:14 Drug: morphine IVP or IV 4 mg IVP once over 4 mins Route: IVP; Infused Over: 4 mins; dd2 Site: right antecubital; 02:29 Follow up: Response: No adverse reaction dd2 02:14 Drug: Ketorolac IVP 30 mg IVP once Route: IVP; Site: right antecubital; dd2 02:29 Follow up: Response: No adverse reaction dd2 02:14 Drug: NS 0.9% IV 1000 ml IV at 125 ml/hr continuous Route: IV; Rate: 125 ml/hr; Site: dd2 right antecubital; 02:29 Follow up: Response: No adverse reaction dd2 06:49 Follow up: Response: No adverse reaction; IV Status: Completed infusion; IV Intake: dd2 500ml 02:15 Drug: Ondansetron IVP 4 mg IVP once; over 2 minutes Route: IVP; Site: right antecubital;dd2 02:29 Follow up: Response: No adverse reaction dd2 02:15 Drug: NS 0.9% IV 1000 ml IV at 1 bolus Per protocol; to be given as a bolus over 60 dd2 minutes Route: IV; Rate: 1 bolus; Site: right antecubital; 02:29 Follow up: Response: No adverse reaction dd2 03:15 Follow up: Response: No adverse reaction; IV Status: Completed infusion; IV Intake: dd2 1000ml 06:33 Not Given (Physician Discretion): [id number] mg PO once sp4 06:33 Not Given (Physician Discretion): [id number] mg PO once sp4 Disposition Summary: 05/15/24 06:28 Discharge Ordered Notes: Consume Fat Free diet to prevent Gallbladder Attacks Location: Home sp4 Problem: new sp4 Symptoms: have improved sp4 Condition: Stable sp4 Diagnosis - Other cholelithiasis without obstruction sp4 - Right upper quadrant abdominal pain, cholelithiasis without cholecystitis sp4 Followup: sp4 - With: Zoran Agarwal MD - When: 7 - 10 days - Reason: Recheck today's complaints Discharge Instructions: - Discharge Summary Sheet sp4 - Cholelithiasis sp4 Forms: - Patient Portal Instructions sp4 Prescriptions: - tramadol 100 mg Oral Tablet, ER Multiphase 24 hr - take 1 tablet ORAL route every 8 hours PRN pain; 20 tablet; Refills: 0, Product sp4 Selection Permitted - Ibuprofen 800 mg Oral Tablet - take 1 tablet ORAL route every 8 hours As needed take with food; 30 tablet; sp4 Refills: 0, Product Selection Permitted - ondansetron 8 mg Oral Tablet,disintegrating - take 1 tablet ORAL route every 8 hours PRN pain; 30 tablet; Refills: 0, Product sp4 Selection Permitted Signatures: Dispatcher [employer] EDMS Jett Frost MD MD sp4 Desire Recio RN RN al5 LUCY PACHECO RN RN dd2 Corrections: (The following items were deleted from the chart) 01:47 01:47 Allergies: Aspirin; al5 al5 04:46 04:46 Abdomen Pelvis W Con+CT.[email or web address].BRZ ordered. EDMS EDMS 04:46 04:46 Abdomen Limited+US.RAD.BRZ ordered. EDMS EDMS
[2024-05-15 09:00] VITALS: BP 107/67; TEMP 98.4; O2SAT 99
--- NOTE | 2024-05-15 09:37 | RAD REPORT ---
EXAM: US Abdomen Limited, Gallbladder CLINICAL HISTORY: The patient is 28 years old and is Female; Abdomen pain, TECHNIQUE: Real-time ultrasound of the right upper quadrant with image documentation. COMPARISON: CTAbdomen pelvis 05/15/2024, 03:19:40 AM. FINDINGS: Gallbladder: 2.6 cm stone in the gallbladder. Gallbladder wall thickness 4.6 mm. No pericholecystic f luid. Negative sonographic Quijano sign. Common bile duct: Common bile duct 4.1 mm in diameter. No stones. No dilation. Pancreas: Unremarkable as visualized. IMPRESSION: Cholelithiasis with mild wall thickening, suggestive of cholecystitis. Clinical correlation suggested . Electronically signed by: Ann Mcclelland MD 05/15/2024 06:08 AM CDT RP Due to temporary technical issues with the [employer] reporting system, reports are being luis e d by the in-house radiologist without review as a courtesy to ensure prompt reporting the interpreting radiologist is fully responsible for the content of the report. Transcribed Date/Time: 05/15/2024 9:37 AM
== END 2024-05-15 06:48 | disposition home or self-care (01) ==
LOC: ER 01:06
DX: K80.80 Other cholelithiasis without obstruction (principal)
CPT/HCPCS: 96361; 85025; 81001; 36415; 81025; 83690; 80053; 74177; 76705; 96375; 96374; 99284; Q9967